=== PATIENT | female | born 1970 | race Caucasian/White ===

== ENCOUNTER 2017-07-27 18:37 | Emergency (ER) | payer OTHER ==
[~2017-07-27] VITALS: Ht 170.2 cm; Wt 90.9 kg
[2017-07-27] MEDS ORDERED: ALPR0.255 PO (18:44)
[2017-07-27] MEDS ORDERED: SODIUM CHLORIDE 0.9% 1,000 ML IV ONE (19:15)
[2017-07-27] MEDS ORDERED: ONDANSETRON HCL 4 MG/2 ML VIAL IVP ONE ×2 (19:15→22:15)
[2017-07-27 19:24] LABS: ADD UA MICROSCOPIC YES; APPEARANCE,URINE CLEAR (CLEAR); GLUCOSE, URINE (UA) NEGATIVE (NEGATIVE); KETONES,URINE >=80 mg/dL (NEGATIVE); LEUKOCYTE ESTERASE ,URINE NEGATIVE (NEGATIVE); OCCULT BLOOD,URINE TRACE (NEGATIVE); PROTEIN,URINE NEGATIVE (NEGATIVE)
[2017-07-27 19:31] LABS: SQUAMOUS EPITHELIAL CELL,UR Moderate /LPF (None Seen)
[2017-07-27 19:33] LABS: WBC,URINE 0-2 /HPF (0-5)
[2017-07-27 19:39] LABS: BASOPHILS # (AUTO) 0.02 K/uL (0.00-0.20); BASOPHILS % (AUTO) 0.3 % (0.0-2.0); EOSINOPHILS # (AUTO) 0.06 K/uL (0.00-0.70); EOSINOPHILS % (AUTO) 1.02 % (1.0-6.0); HEMATOCRIT 39.3 % (36-46); HEMOGLOBIN 13.3 g/dL (12.0-16.0); LYMPHOCYTES # (AUTO) 1.5 K/uL (1.0-4.8); LYMPHOCYTES % (AUTO) 25.1 % (22.0-44.0); MEAN CORPUSCULAR HEMOGLOBIN 29.2 pg (26.0-34.0); MEAN CORPUSCULAR HGB CONC 33.8 G/dL (31.0-37.0); MEAN CORPUSCULAR VOLUME 86 fL (80-100); MONOCYTES # (AUTO) 0.5 K/uL (0.1-1.0); MONOCYTES % (AUTO) 8.3 % (2.0-9.0); NEUTROPHILS % (AUTO) 65.3 % (40.0-70.0); PLATELET COUNT (AUTO) 263 K/uL (150-450); RED BLOOD CELL COUNT(AUTO) 4.56 MIL/uL (4.00-5.20); RED CELL DISTRIBUTION WIDTH 12.6 % (11.5-14.5); WHITE BLOOD COUNT (AUTO) 6.1 K/uL (4.5-11.0)
[2017-07-27 19:48] LABS: ANION GAP 7 mmol/L (8-16); CALCIUM, TOTAL 8.8 mg/dL (8.8-10.5); CARBON DIOXIDE 29 mmol/L (22-29); CHLORIDE 104 mmol/L (98-107); CREATININE 0.81 mg/dL (0.60-1.30); GLOMERULAR FILTR. RATE CALC > 60 mL/min (>60); POTASSIUM 4.1 mmol/L (3.5-5.1); SODIUM SERUM 140 mmol/L (136-145); UREA NITROGEN, BLOOD 9 mg/dL (7-18)
[2017-07-27 19:53] LABS: ALANINE AMINOTRANSFERASE 26 U/L (12-78); ALBUMIN 3.7 g/dL (3.4-5.0); ASPARTATE AMINOTRANSFERASE 22 U/L (15-37); BILIRUBIN,TOTAL 0.3 mg/dL (0.1-1.0)
[2017-07-27 21:32] LABS: THYROID STIMULATING HORMONE 2.64 uIU/mL (0.36-3.74)
[2017-07-27 22:38] VITALS: BP 133/77
== END 2017-07-27 22:39 | disposition home or self-care (01) ==
LOC: EMS 18:38
DX: R11.2 Nausea with vomiting, unspecified (principal); F17.210 Nicotine dependence, cigarettes, uncomplicated; R51 Headache; R52 Pain, unspecified
CPT/HCPCS: 36415; 80053; 81001; 83690; 84443; 84703; 85025; 93005; 96361; 96374; 96376; 99285; J2405; J7030

== ENCOUNTER 2019-01-09 22:27 | Emergency (ER) | payer OTHER ==
[~2019-01-09] VITALS: Ht 170.2 cm; Wt 69.8 kg
[~2019-01-09 22:27] MED LIST: ALPR0.255 PO
[2019-01-09] MEDS ORDERED: MORPHINE SULFATE 4 MG/ML SYRINGE IVP ONE (23:00)
[2019-01-09] MEDS ORDERED: SODIUM CHLORIDE 0.9% 100 ML ONE (23:19)
[2019-01-09] MEDS ORDERED: IOVERSOL 320 MG/ML 100 ML VIAL ONE (23:19)
[2019-01-09 23:45] LABS: BASOPHILS % (AUTO) 0.5 % (0.0-2.0); EOSINOPHILS % (AUTO) 1.8 % (1.0-6.0); HEMATOCRIT 32.3 % (36-46); HEMOGLOBIN 10.7 g/dL (12.0-16.0); LYMPHOCYTES # (AUTO) 1.4 K/uL (1.0-4.8); LYMPHOCYTES % (AUTO) 20.5 % (22.0-44.0); MEAN CORPUSCULAR HGB CONC 33.1 G/dL (31.0-37.0); MEAN CORPUSCULAR VOLUME 82 fL (80-100); MONOCYTES # (AUTO) 0.8 K/uL (0.1-1.0); MONOCYTES % (AUTO) 11.7 % (2.0-9.0); NEUTROPHILS # (AUTO) 4.3 K/uL (1.8-7.7); NEUTROPHILS % (AUTO) 65.5 % (40.0-70.0); PLATELET COUNT (AUTO) 453 K/uL (150-450); RED BLOOD CELL COUNT(AUTO) 3.96 MIL/uL (4.00-5.20); RED CELL DISTRIBUTION WIDTH 14.2 % (11.5-14.5)
[2019-01-10 00:16] LABS: ANION GAP 10 mmol/L (8-16); CALCIUM, TOTAL 9.5 mg/dL (8.8-10.5); CARBON DIOXIDE 29 mmol/L (22-29); CHLORIDE 102 mmol/L (98-107); CREATININE 0.76 mg/dL (0.60-1.30); GLOMERULAR FILTR. RATE CALC > 60 mL/min (>60); GLUCOSE,RANDOM 93 mg/dL (70-110); POTASSIUM 4.3 mmol/L (3.5-5.1); SODIUM SERUM 141 mmol/L (136-145); UREA NITROGEN, BLOOD 11 mg/dL (7-18)
[2019-01-10 00:27] LABS: ALANINE AMINOTRANSFERASE 36 U/L (12-78); ALBUMIN 2.9 g/dL (3.4-5.0); ALKALINE PHOSPHATASE 145 U/L (46-116); ASPARTATE AMINOTRANSFERASE 28 U/L (15-37); BILIRUBIN,TOTAL 0.2 mg/dL (0.1-1.0); HCG,QUANTITATIVE < 1 mIU/mL (0-6); TOTAL PROTEIN, SERUM 7.4 g/dL (6.4-8.2)
[2019-01-10 02:11] VITALS: BP 148/90
== END 2019-01-10 02:47 | disposition home or self-care (01) ==
LOC: EMS 22:28
DX: M25.512 Pain in left shoulder (principal); D64.9 Anemia, unspecified; F41.9 Anxiety disorder, unspecified; F32.9 Major depressive disorder, single episode, unspecified; F17.210 Nicotine dependence, cigarettes, uncomplicated
CPT/HCPCS: 36415; 71260; 80053; 84484; 84702; 85025; 96374; 99284; J2270; J7050; Q9967

== ENCOUNTER 2019-02-26 21:18 | Inpatient (IN) | payer OTHER ==
[~2019-02-26] VITALS: Ht 170.2 cm; Wt 74.0 kg
[2019-02-26] MEDS ORDERED: LORA1TAB3 PO (21:30)
[2019-02-26] MEDS ORDERED: LORazepam 2 MG/ML VIAL IVP ONE (22:00)
[2019-02-26 22:30] LABS: BASOPHILS % (AUTO) 0.5 % (0.0-2.0); EOSINOPHILS % (AUTO) 1.5 % (1.0-6.0); HEMATOCRIT 35.6 % (36-46); HEMOGLOBIN 11.4 g/dL (12.0-16.0); LYMPHOCYTES # (AUTO) 3.4 K/uL (1.0-4.8); LYMPHOCYTES % (AUTO) 28.6 % (22.0-44.0); MEAN CORPUSCULAR HEMOGLOBIN 25.7 pg (26.0-34.0); MEAN CORPUSCULAR VOLUME 81 fL (80-100); MONOCYTES # (AUTO) 0.7 K/uL (0.1-1.0); MONOCYTES % (AUTO) 6.3 % (2.0-9.0); NEUTROPHILS # (AUTO) 7.4 K/uL (1.8-7.7); NEUTROPHILS % (AUTO) 63.1 % (40.0-70.0); PLATELET COUNT (AUTO) 635 K/uL (150-450); RED BLOOD CELL COUNT(AUTO) 4.42 MIL/uL (4.00-5.20); RED CELL DISTRIBUTION WIDTH 14.8 % (11.5-14.5)
[2019-02-26] MEDS ORDERED: SODIUM CHLORIDE 0.9% 0 ML ONE (22:30)
[2019-02-26] MEDS ORDERED: IOVERSOL 350 MG/ML 100 ML VIAL ONE (22:30)
[2019-02-26 22:41] LABS: INR 0.9 (0.9-1.1); PROTHROMBIN TIME 9.2 SEC (9.4-11.6)
[2019-02-26 22:43] LABS: ANION GAP 6 mmol/L (8-16); CALCIUM, TOTAL 9.8 mg/dL (8.8-10.5); CARBON DIOXIDE 31 mmol/L (22-29); CHLORIDE 103 mmol/L (98-107); CREATININE 0.76 mg/dL (0.60-1.30); GLOMERULAR FILTR. RATE CALC > 60 mL/min (>60); GLUCOSE,RANDOM 104 mg/dL (70-110); POTASSIUM 4.2 mmol/L (3.5-5.1); SODIUM SERUM 140 mmol/L (136-145); UREA NITROGEN, BLOOD 20 mg/dL (7-18)
[2019-02-26 22:49] LABS: LACTIC ACID 1.1 mmol/L (0.4-2.0)
[2019-02-26 22:58] LABS: ALANINE AMINOTRANSFERASE 16 U/L (12-78); ALBUMIN 3.1 g/dL (3.4-5.0); ALKALINE PHOSPHATASE 126 U/L (46-116); ASPARTATE AMINOTRANSFERASE 11 U/L (15-37); BILIRUBIN,TOTAL 0.2 mg/dL (0.1-1.0); FREE T4 (FREE THYROXINE) 1.27 ng/dL (0.76-1.46); LIPASE 119 U/L (73-393); THYROID STIMULATING HORMONE 3.18 uIU/mL (0.36-3.74); TOTAL PROTEIN, SERUM 7.5 g/dL (6.4-8.2)
[2019-02-27] MEDS ORDERED: CefTRIAXone 1 GM/DEXTROSE 50 ML IV ONE (01:15)
[2019-02-27] MEDS ORDERED: VANCOMYCIN HCL 1 GM/D5% WATER 200 ML IV ONE (01:15)
[2019-02-27] MEDS ORDERED: 0.9% SODIUM CHLORIDE 10 ML SYRINGE IVP PRN ×3 (01:45→06:15)
[2019-02-27] MEDS ORDERED: ACETAMINOPHEN 325 MG TABLET PO PRN ×2 (01:45→06:15)
[2019-02-27] MEDS ORDERED: ONDANSETRON HCL 4 MG/2 ML VIAL IVP PRN ×2 (01:45→06:15)
[2019-02-27] MEDS ORDERED: VANCOMYCIN HCL 500 MG in DEXTROSE 5%-WATER 100 ML IV ONE (08:00)
[2019-02-27] MEDS: DOCUSATE SODIUM 100 MG CAPSULE PO SCH ×2 (09:00→21:01)
[2019-02-27 09:04] VITALS: BP 112/60
[2019-02-27] MEDS ORDERED: SODIUM CHLORIDE 0.9% 500 ML IV ONE (10:52)
[2019-02-27] MEDS: HEPARIN SODIUM,PORCINE 5,000 UNITS/ML VIAL SQ SCH ×2 (10:55→16:00)
[2019-02-27] MEDS: PANTOPRAZOLE SODIUM 40 MG/VIAL IVP SCH (10:55)
[2019-02-27 12:00] VITALS: BP 108/68
[2019-02-27] MEDS ORDERED: KETOROLAC TROMETHAMINE 30 MG/ML VIAL IVP ONE (12:00)
[2019-02-27] MEDS: MORPHINE SULFATE 4 MG/ML SYRINGE IVP PRN ×2 (14:46→21:01)
[2019-02-27] MEDS: KETOROLAC TROMETHAMINE 10 MG TABLET PO PRN (16:34)
[2019-02-27] MEDS: LORazepam 1 MG TABLET PO PRN (16:35)
[2019-02-27] MEDS: VANCOMYCIN HCL 1 GM/D5% WATER 200 ML IV SCH (16:37)
[2019-02-27 16:53] VITALS: BP 112/62
[2019-02-27 20:05] VITALS: BP 111/61
[2019-02-27] MEDS: ONDANSETRON HCL 4 MG/2 ML VIAL IVP PRN (23:06)
[2019-02-28 00:29] VITALS: BP 120/76
[2019-02-28] MEDS: VANCOMYCIN HCL 1 GM/D5% WATER 200 ML IV SCH (00:32)
[2019-02-28] MEDS: LORazepam 1 MG TABLET PO PRN ×3 (00:45→23:58)
[2019-02-28 04:13] VITALS: BP 118/56
[2019-02-28] MEDS: CefTRIAXone 1 GM/DEXTROSE 50 ML IV SCH (06:10)
[2019-02-28] MEDS: MORPHINE SULFATE 4 MG/ML SYRINGE IVP PRN ×2 (06:19→12:13)
[2019-02-28] MEDS: ONDANSETRON HCL 4 MG/2 ML VIAL IVP PRN ×2 (06:33→20:33)
[2019-02-28 06:41] LABS: BASOPHILS % (AUTO) 0.2 % (0.0-2.0); EOSINOPHILS % (AUTO) 1.3 % (1.0-6.0); HEMATOCRIT 33.8 % (36-46); HEMOGLOBIN 11.1 g/dL (12.0-16.0); LYMPHOCYTES # (AUTO) 2.5 K/uL (1.0-4.8); LYMPHOCYTES % (AUTO) 31.4 % (22.0-44.0); MEAN CORPUSCULAR HEMOGLOBIN 26.4 pg (26.0-34.0); MEAN CORPUSCULAR HGB CONC 32.7 G/dL (31.0-37.0); MEAN CORPUSCULAR VOLUME 81 fL (80-100); MONOCYTES # (AUTO) 0.6 K/uL (0.1-1.0); MONOCYTES % (AUTO) 6.8 % (2.0-9.0); NEUTROPHILS # (AUTO) 4.9 K/uL (1.8-7.7); NEUTROPHILS % (AUTO) 60.3 % (40.0-70.0); PLATELET COUNT (AUTO) 617 K/uL (150-450)
[2019-02-28 07:30] VITALS: BP 122/68
[2019-02-28 07:51] LABS: ALANINE AMINOTRANSFERASE 13 U/L (12-78); ALBUMIN 2.6 g/dL (3.4-5.0); ALKALINE PHOSPHATASE 110 U/L (46-116); ANION GAP 3 mmol/L (8-16); ASPARTATE AMINOTRANSFERASE 10 U/L (15-37); BILIRUBIN,TOTAL 0.2 mg/dL (0.1-1.0); CALCIUM, TOTAL 8.8 mg/dL (8.8-10.5); CARBON DIOXIDE 32 mmol/L (22-29); CHLORIDE 101 mmol/L (98-107); CREATININE 0.89 mg/dL (0.60-1.30); GLOMERULAR FILTR. RATE CALC > 60 mL/min (>60); GLUCOSE,RANDOM 106 mg/dL (70-110); POTASSIUM 4.3 mmol/L (3.5-5.1); SODIUM SERUM 136 mmol/L (136-145); TOTAL PROTEIN, SERUM 6.5 g/dL (6.4-8.2); UREA NITROGEN, BLOOD 19 mg/dL (7-18); VANCOMYCIN,RANDOM 24.1 mcg/mL (25.0-50.0)
[2019-02-28] MEDS: HEPARIN SODIUM,PORCINE 5,000 UNITS/ML VIAL SQ SCH ×3 (08:00→15:22)
[2019-02-28] MEDS: PANTOPRAZOLE SODIUM 40 MG/VIAL IVP SCH (08:52)
[2019-02-28] MEDS: DOCUSATE SODIUM 100 MG CAPSULE PO SCH ×2 (08:52→20:32)
[2019-02-28] MEDS: KETOROLAC TROMETHAMINE 10 MG TABLET PO PRN ×2 (09:03→23:59)
[2019-02-28] MEDS ORDERED: KETAMINE HCL 50 MG/ML 10 ML VIAL IVP ONE (12:00)
[2019-02-28] MEDS ORDERED: MIDAZOLAM HCL 2 MG/2 ML VIAL IVP ONE (12:00)
[2019-02-28 15:27] VITALS: BP 114/71
[2019-02-28] MEDS: VANCOMYCIN HCL 750 MG in DEXTROSE 5%-WATER 250 ML IV SCH ×2 (16:04→19:35)
[2019-02-28] MEDS: HYDROmorphone 2 MG/ML SYRINGE IVP PRN ×2 (16:05→20:33)
[2019-02-28] MEDS ORDERED: LORazepam 2 MG/ML VIAL IVP ONE (16:15)
[2019-02-28] MEDS ORDERED: GADOBUTROL 1 MMOL/ML 10 ML VIAL IVP ONE (18:23)
[2019-02-28 19:45] VITALS: BP 97/64
[2019-02-28 23:55] VITALS: BP 127/71
[2019-03-01] MEDS: HYDROmorphone 2 MG/ML SYRINGE IVP PRN ×4 (00:48→19:43)
[2019-03-01] MEDS: VANCOMYCIN HCL 750 MG in DEXTROSE 5%-WATER 250 ML IV SCH ×3 (03:26→19:33)
[2019-03-01 04:15] VITALS: BP 114/66
[2019-03-01] MEDS: CefTRIAXone 1 GM/DEXTROSE 50 ML IV SCH (06:08)
[2019-03-01] MEDS ORDERED: LIDOCAINE/PF 2% 5 ML VIAL ONE (06:44)
[2019-03-01] MEDS ORDERED: DEXAMETHASONE SOD PHOS 4 MG/ML VIAL ONE (06:44)
[2019-03-01] MEDS ORDERED: ACETAMINOPHEN 1000 MG/ISO-OSM 100 ML IV ONE (06:45)
[2019-03-01] MEDS ORDERED: BUPIVACAINE HCL/PF 0.5% 30 ML VIAL ONE (06:45)
[2019-03-01] MEDS ORDERED: SODIUM CL IRRIG SOLN BAG 3,000 ML IRRIG ONE (06:47)
[2019-03-01 06:57] LABS: BASOPHILS % (AUTO) 0.3 % (0.0-2.0); EOSINOPHILS % (AUTO) 1.9 % (1.0-6.0); HEMATOCRIT 34.3 % (36-46); HEMOGLOBIN 11.1 g/dL (12.0-16.0); LYMPHOCYTES # (AUTO) 2.2 K/uL (1.0-4.8); LYMPHOCYTES % (AUTO) 30.4 % (22.0-44.0); MEAN CORPUSCULAR HEMOGLOBIN 26.2 pg (26.0-34.0); MEAN CORPUSCULAR HGB CONC 32.3 G/dL (31.0-37.0); MEAN CORPUSCULAR VOLUME 81 fL (80-100); MONOCYTES # (AUTO) 0.5 K/uL (0.1-1.0); MONOCYTES % (AUTO) 7.4 % (2.0-9.0); NEUTROPHILS # (AUTO) 4.4 K/uL (1.8-7.7); PLATELET COUNT (AUTO) 619 K/uL (150-450); RED BLOOD CELL COUNT(AUTO) 4.24 MIL/uL (4.00-5.20); RED CELL DISTRIBUTION WIDTH 14.8 % (11.5-14.5)
[2019-03-01] MEDS ORDERED: RINGERS SOLUTION,LACTATED 1,000 ML IV ONE (07:10)
[2019-03-01] MEDS ORDERED: VANCOMYCIN HCL 1 GM/VIAL ONE (07:25)
[2019-03-01 07:43] LABS: ANION GAP 8 mmol/L (8-16); CALCIUM, TOTAL 9.4 mg/dL (8.8-10.5); CARBON DIOXIDE 30 mmol/L (22-29); CHLORIDE 101 mmol/L (98-107); CREATININE 0.89 mg/dL (0.60-1.30); GLOMERULAR FILTR. RATE CALC > 60 mL/min (>60); GLUCOSE,RANDOM 107 mg/dL (70-110); POTASSIUM 4.6 mmol/L (3.5-5.1); SODIUM SERUM 139 mmol/L (136-145); UREA NITROGEN, BLOOD 23 mg/dL (7-18)
[2019-03-01] MEDS: HEPARIN SODIUM,PORCINE 5,000 UNITS/ML VIAL SQ SCH ×5 (08:00→23:04)
[2019-03-01] MEDS ORDERED: MIDAZOLAM HCL 2 MG/2 ML VIAL ONE (08:08)
[2019-03-01] MEDS ORDERED: MIDAZOLAM HCL 2 MG/2 ML VIAL IVP ONE (08:15)
[2019-03-01] MEDS ORDERED: HYDROmorphone 2 MG/ML SYRINGE IVP PRN ×3 (08:15)
[2019-03-01] MEDS: ACETAMINOPHEN 500 MG TABLET PO SCH ×3 (08:15→19:33)
[2019-03-01] MEDS ORDERED: MEPERIDINE-PF 25 MG/ML VIAL IVP PRN ×2 (08:15)
[2019-03-01] MEDS ORDERED: FentaNYL CITRATE-PF 100 MCG/2 ML VIAL IVP PRN ×2 (08:15)
[2019-03-01] MEDS ORDERED: MEPERIDINE-PF 25 MG/ML VIAL ONE (08:30)
[2019-03-01 08:39] VITALS: BP 123/70
[2019-03-01] MEDS: PANTOPRAZOLE SODIUM 40 MG/VIAL IVP SCH (09:17)
[2019-03-01] MEDS: DOCUSATE SODIUM 100 MG CAPSULE PO SCH ×2 (09:17→19:33)
[2019-03-01 09:23] VITALS: BP 131/90
[2019-03-01] MEDS ORDERED: ONDANSETRON HCL 4 MG/2 ML VIAL IVP ONE (12:00)
[2019-03-01] MEDS ORDERED: KETOROLAC TROMETHAMINE 60 MG/2 ML VIAL IM ONE (12:00)
[2019-03-01] MEDS ORDERED: LIDOCAINE/PF 2% 5 ML VIAL INJ ONE (12:00)
[2019-03-01] MEDS ORDERED: EPHEDrine SULFATE 50 MG/ML VIAL IM ONE (12:00)
[2019-03-01] MEDS ORDERED: DEXAMETHASONE SOD PHOS 4 MG/ML VIAL IVP ONE (12:00)
[2019-03-01] MEDS ORDERED: PROPOFOL 1% 20 ML VIAL IVP ONE (12:00)
[2019-03-01] MEDS: LORazepam 1 MG TABLET PO PRN (12:22)
[2019-03-01 16:30] VITALS: BP 116/69
[2019-03-01] MEDS: KETOROLAC TROMETHAMINE 15 MG/ML VIAL IVP SCH (16:54)
[2019-03-01 19:47] VITALS: BP 113/84
[2019-03-02] VITALS (7 sets, daily range): BP systolic 93–122; BP diastolic 54–78
[2019-03-02] MEDS: HYDROmorphone 2 MG/ML SYRINGE IVP PRN ×5 (00:18→20:20)
[2019-03-02] MEDS: ACETAMINOPHEN 500 MG TABLET PO SCH ×4 (01:14→20:18)
[2019-03-02] MEDS: LORazepam 1 MG TABLET PO PRN ×3 (01:14→18:25)
[2019-03-02] MEDS: VANCOMYCIN HCL 750 MG in DEXTROSE 5%-WATER 250 ML IV SCH ×3 (03:15→16:26)
[2019-03-02] MEDS: KETOROLAC TROMETHAMINE 15 MG/ML VIAL IVP SCH ×4 (05:09→18:25)
[2019-03-02] MEDS: CefTRIAXone 1 GM/DEXTROSE 50 ML IV SCH (05:09)
[2019-03-02 06:15] LABS: BASOPHILS % (AUTO) 0.2 % (0.0-2.0); EOSINOPHILS % (AUTO) 0.1 % (1.0-6.0); HEMATOCRIT 33.5 % (36-46); HEMOGLOBIN 11.1 g/dL (12.0-16.0); LYMPHOCYTES # (AUTO) 1.8 K/uL (1.0-4.8); LYMPHOCYTES % (AUTO) 14.7 % (22.0-44.0); MEAN CORPUSCULAR HEMOGLOBIN 26.5 pg (26.0-34.0); MEAN CORPUSCULAR HGB CONC 33.1 G/dL (31.0-37.0); MEAN CORPUSCULAR VOLUME 80 fL (80-100); MONOCYTES # (AUTO) 0.6 K/uL (0.1-1.0); MONOCYTES % (AUTO) 5.1 % (2.0-9.0); NEUTROPHILS # (AUTO) 9.6 K/uL (1.8-7.7); NEUTROPHILS % (AUTO) 79.9 % (40.0-70.0); PLATELET COUNT (AUTO) 684 K/uL (150-450); RED BLOOD CELL COUNT(AUTO) 4.19 MIL/uL (4.00-5.20); RED CELL DISTRIBUTION WIDTH 14.9 % (11.5-14.5)
[2019-03-02 06:39] LABS: ANION GAP 9 mmol/L (8-16); CARBON DIOXIDE 27 mmol/L (22-29); CHLORIDE 103 mmol/L (98-107); CREATININE 0.82 mg/dL (0.60-1.30); GLOMERULAR FILTR. RATE CALC > 60 mL/min (>60); GLUCOSE,RANDOM 140 mg/dL (70-110); POTASSIUM 4.2 mmol/L (3.5-5.1); SODIUM SERUM 139 mmol/L (136-145); UREA NITROGEN, BLOOD 17 mg/dL (7-18); VANCOMYCIN,RANDOM 14.6 mcg/mL (25.0-50.0)
[2019-03-02] MEDS: HEPARIN SODIUM,PORCINE 5,000 UNITS/ML VIAL SQ SCH ×2 (08:00→15:39)
[2019-03-02] MEDS: DOCUSATE SODIUM 100 MG CAPSULE PO SCH ×2 (09:05→20:20)
[2019-03-02] MEDS: PANTOPRAZOLE SODIUM 40 MG/VIAL IVP SCH (09:05)
[2019-03-02] MEDS: BISACODYL 5 MG EC TABLET PO SCH ×2 (12:40→20:20)
[2019-03-02] MEDS: ZOLPIDEM TARTRATE 5 MG TABLET PO PRN (22:24)
[2019-03-03] MEDS: VANCOMYCIN HCL 750 MG in DEXTROSE 5%-WATER 250 ML IV SCH (00:04)
[2019-03-03 00:18] VITALS: BP 101/65
[2019-03-03] MEDS: LORazepam 1 MG TABLET PO PRN ×3 (00:32→21:03)
[2019-03-03] MEDS: ACETAMINOPHEN 500 MG TABLET PO SCH ×4 (02:15→21:03)
[2019-03-03 05:31] LABS: BASOPHILS % (AUTO) 0.7 % (0.0-2.0); EOSINOPHILS % (AUTO) 1.5 % (1.0-6.0); HEMOGLOBIN 10.1 g/dL (12.0-16.0); LYMPHOCYTES % (AUTO) 45.8 % (22.0-44.0); MEAN CORPUSCULAR HEMOGLOBIN 26.3 pg (26.0-34.0); MEAN CORPUSCULAR HGB CONC 32.6 G/dL (31.0-37.0); MEAN CORPUSCULAR VOLUME 81 fL (80-100); MONOCYTES # (AUTO) 0.6 K/uL (0.1-1.0); MONOCYTES % (AUTO) 8.9 % (2.0-9.0); NEUTROPHILS # (AUTO) 2.9 K/uL (1.8-7.7); NEUTROPHILS % (AUTO) 43.1 % (40.0-70.0); PLATELET COUNT (AUTO) 571 K/uL (150-450); RED BLOOD CELL COUNT(AUTO) 3.83 MIL/uL (4.00-5.20); RED CELL DISTRIBUTION WIDTH 15.1 % (11.5-14.5)
[2019-03-03 05:47] LABS: ANION GAP 7 mmol/L (8-16); CALCIUM, TOTAL 8.7 mg/dL (8.8-10.5); CARBON DIOXIDE 31 mmol/L (22-29); CHLORIDE 105 mmol/L (98-107); CREATININE 0.82 mg/dL (0.60-1.30); GLOMERULAR FILTR. RATE CALC > 60 mL/min (>60); GLUCOSE,RANDOM 101 mg/dL (70-110); POTASSIUM 4.1 mmol/L (3.5-5.1); SODIUM SERUM 143 mmol/L (136-145); UREA NITROGEN, BLOOD 17 mg/dL (7-18); VANCOMYCIN,RANDOM 21.4 mcg/mL (25.0-50.0)
[2019-03-03 05:48] VITALS: BP 100/62
[2019-03-03] MEDS: KETOROLAC TROMETHAMINE 15 MG/ML VIAL IVP SCH ×4 (05:56→18:21)
[2019-03-03] MEDS: HYDROmorphone 2 MG/ML SYRINGE IVP PRN ×4 (05:57→22:33)
[2019-03-03 07:40] VITALS: BP 103/74
[2019-03-03] MEDS: HEPARIN SODIUM,PORCINE 5,000 UNITS/ML VIAL SQ SCH ×3 (08:00→15:54)
[2019-03-03] MEDS ORDERED: VANCOMYCIN HCL 1 GM/D5% WATER 200 ML IV ONE (08:00)
[2019-03-03] MEDS: DOCUSATE SODIUM 100 MG CAPSULE PO SCH ×2 (08:04→21:02)
[2019-03-03] MEDS: BISACODYL 5 MG EC TABLET PO SCH ×2 (08:05→21:02)
[2019-03-03] MEDS: PANTOPRAZOLE SODIUM 40 MG/VIAL IVP SCH (08:05)
[2019-03-03] MEDS: OxyCODONE HCL/ACETAMINOPHEN 10-325 MG TABLET PO PRN ×2 (08:07→18:20)
[2019-03-03] MEDS: ONDANSETRON HCL 4 MG/2 ML VIAL IVP PRN (09:17)
[2019-03-03 11:16] VITALS: BP 106/61
[2019-03-03] MEDS: VANCOMYCIN HCL 1 GM/D5% WATER 200 ML IV SCH ×2 (15:54→23:10)
[2019-03-03 16:11] VITALS: BP 112/63
[2019-03-03 20:32] VITALS: BP 106/61
[2019-03-04 00:05] VITALS: BP 115/68
[2019-03-04] MEDS: ZOLPIDEM TARTRATE 5 MG TABLET PO PRN (00:20)
[2019-03-04] MEDS: KETOROLAC TROMETHAMINE 15 MG/ML VIAL IVP SCH ×3 (00:23→12:44)
[2019-03-04] MEDS: ACETAMINOPHEN 500 MG TABLET PO SCH ×3 (02:15→14:15)
[2019-03-04 04:08] VITALS: BP 124/60
[2019-03-04] MEDS: HYDROmorphone 2 MG/ML SYRINGE IVP PRN ×2 (05:37→16:09)
[2019-03-04 06:22] LABS: ANION GAP 7 mmol/L (8-16); CALCIUM, TOTAL 9.5 mg/dL (8.8-10.5); CARBON DIOXIDE 30 mmol/L (22-29); CHLORIDE 104 mmol/L (98-107); CREATININE 0.94 mg/dL (0.60-1.30); GLOMERULAR FILTR. RATE CALC > 60 mL/min (>60); GLUCOSE,RANDOM 101 mg/dL (70-110); POTASSIUM 4.3 mmol/L (3.5-5.1); SODIUM SERUM 141 mmol/L (136-145); UREA NITROGEN, BLOOD 19 mg/dL (7-18)
[2019-03-04] MEDS: VANCOMYCIN HCL 1 GM/D5% WATER 200 ML IV SCH ×2 (06:38→14:24)
[2019-03-04 07:18] VITALS: BP 105/57
[2019-03-04] MEDS: HEPARIN SODIUM,PORCINE 5,000 UNITS/ML VIAL SQ SCH ×3 (08:00→16:00)
[2019-03-04] MEDS: DOCUSATE SODIUM 100 MG CAPSULE PO SCH (08:30)
[2019-03-04] MEDS: BISACODYL 5 MG EC TABLET PO SCH (08:30)
[2019-03-04] MEDS: LORazepam 1 MG TABLET PO PRN (09:01)
[2019-03-04] MEDS: OxyCODONE HCL/ACETAMINOPHEN 10-325 MG TABLET PO PRN ×2 (09:03→14:24)
[2019-03-04] MEDS: PANTOPRAZOLE SODIUM 40 MG/VIAL IVP SCH (09:04)
[2019-03-04 11:42] VITALS: BP 111/70
[2019-03-04] MEDS ORDERED: VANC1FRO IVPB (13:59)
[2019-03-04 16:05] VITALS: BP 102/68
== END 2019-03-04 16:40 | disposition home or self-care (01) | DRG 315 ==
LOC: EMS 21:20 → 5N 02-27 01:41
PROVIDERS: ADMIT Internal Medicine; ATTEND Internal Medicine
PROC: 0XB30ZZ Excision of Left Shoulder Region, Open Approach (ICD-10-PCS; 2019-03-01)
PROC: 0RBF0ZZ Excision of Left Sternoclavicular Joint, Open Approach (ICD-10-PCS; 2019-03-01)
PROC: 0J9F0ZZ Drainage of Left Upper Arm Subcutaneous Tissue and Fascia, Open Approach (ICD-10-PCS; 2019-03-01)
PROC: 0PBB0ZZ Excision of Left Clavicle, Open Approach (ICD-10-PCS; principal; 2019-03-01 07:30)
PROC: B548ZZA Ultrasonography of Superior Vena Cava, Guidance (ICD-10-PCS; 2019-03-03)
PROC: 02HV33Z Insertion of Infusion Device into Superior Vena Cava, Percutaneous Approach (ICD-10-PCS; 2019-03-03)
DX: M00.9 Pyogenic arthritis, unspecified (principal); L02.213 Cutaneous abscess of chest wall; M86.8X1 Other osteomyelitis, shoulder; K59.00 Constipation, unspecified; F41.9 Anxiety disorder, unspecified; F32.9 Major depressive disorder, single episode, unspecified; F17.210 Nicotine dependence, cigarettes, uncomplicated; Z88.1 Allergy status to other antibiotic agents
CPT/HCPCS: 36569; 71250; 71552; 76937; 83605; 83735; 84439; 84443; 85651; 86140; 87040; 87070; 87205; 88304; 88311; 93306; 96365; 96375; A9585; C9113; G0378; J0131; J0696; J1100; J1170; J1644; J1885; J2060; J2175; J2250; J2270; J2405; J2704; J3370; J3490; J7040; J7050; J7060; J7120

== ENCOUNTER 2019-05-11 12:04 | Inpatient (IN) | payer OTHER ==
[~2019-05-11] VITALS: Ht 170.2 cm; Wt 61.0 kg
[~2019-05-11 12:04] MED LIST changes: -ALPR0.255 PO; +VANC1FRO IVPB
[2019-05-11] MEDS ORDERED: CEFA1IV IV (12:19)
[2019-05-11] MEDS ORDERED: IBUP-2070 PO (12:19)
[2019-05-11] MEDS ORDERED: ACET-2247 PO (12:19)
[2019-05-11] MEDS ORDERED: SODIUM CHLORIDE 0.9% 1,000 ML IV ONE ×2 (12:45→15:15)
[2019-05-11] MEDS ORDERED: HYDROmorphone 2 MG/ML SYRINGE IVP ONE (12:45)
[2019-05-11] MEDS ORDERED: ONDANSETRON HCL 4 MG/2 ML VIAL IVP ONE (12:45)
[2019-05-11 13:01] LABS: BASOPHILS % (AUTO) 0.6 % (0.0-2.0); EOSINOPHILS % (AUTO) 0.7 % (1.0-6.0); HEMATOCRIT 26.9 % (36-46); HEMOGLOBIN 8.4 g/dL (12.0-16.0); LYMPHOCYTES # (AUTO) 0.5 K/uL (1.0-4.8); MEAN CORPUSCULAR HEMOGLOBIN 22.7 pg (26.0-34.0); MEAN CORPUSCULAR HGB CONC 31.1 G/dL (31.0-37.0); MEAN CORPUSCULAR VOLUME 73 fL (80-100); MONOCYTES # (AUTO) 0.4 K/uL (0.1-1.0); MONOCYTES % (AUTO) 4.6 % (2.0-9.0); NEUTROPHILS % (AUTO) 89.1 % (40.0-70.0); PLATELET COUNT (AUTO) 316 K/uL (150-450); RED BLOOD CELL COUNT(AUTO) 3.69 MIL/uL (4.00-5.20); RED CELL DISTRIBUTION WIDTH 18.3 % (11.5-14.5)
[2019-05-11 13:09] LABS: CALCIUM, TOTAL 9.1 mg/dL (8.8-10.5); CREATININE 1.15 mg/dL (0.60-1.30); POTASSIUM 3.5 mmol/L (3.5-5.1)
[2019-05-11 13:15] LABS: BILIRUBIN,TOTAL 0.6 mg/dL (0.1-1.0); C-REACTIVE PROTEIN QUANT 30.19 mg/dL (0.00-0.30); TOTAL PROTEIN, SERUM 6.6 g/dL (6.4-8.2)
[2019-05-11 13:18] LABS: LACTIC ACID 1.1 mmol/L (0.4-2.0)
[2019-05-11 13:41] LABS: ERYTHROCYTE SEDIMENTATION RATE 77 MM/HR (0-20)
[2019-05-11] MEDS ORDERED: FUROSEMIDE 40 MG/4 ML VIAL IVP ONE (14:00)
[2019-05-11] MEDS ORDERED: CefTRIAXone 1 GM/DEXTROSE 50 ML IV ONE (14:00)
[2019-05-11] MEDS ORDERED: AZITHROMYCIN 500 MG/NS 250 ML IV ONE (14:00)
[2019-05-11 14:20] LABS: APPEARANCE,URINE CLOUDY (CLEAR); GLUCOSE, URINE (UA) NEGATIVE (NEGATIVE); KETONES,URINE NEGATIVE (NEGATIVE); LEUKOCYTE ESTERASE ,URINE SMALL (NEGATIVE); NITRATE,URINE NEGATIVE (NEGATIVE); OCCULT BLOOD,URINE NEGATIVE (NEGATIVE); PH,URINE 5.5 (5.0-8.0); PROTEIN,URINE SEE CONFIRM (NEGATIVE)
[2019-05-11 14:21] LABS: BILIRUBIN,URINE PRELIM. POSITIVE (NEGATIVE)
[2019-05-11 14:42] LABS: RBC,URINE None Seen /HPF (0-2); SULFOSALICYLIC ACID,URINE 1+ (Negative)
[2019-05-11 14:43] LABS: BACTERIA,URINE None Seen /HPF (None Seen); SQUAMOUS EPITHELIAL CELL,UR Many /LPF (None Seen)
[2019-05-11] MEDS ORDERED: *CLINICAL-CEFEPIME DOSING CLINICAL ONE (14:45)
[2019-05-11] MEDS ORDERED: BISACODYL 10 MG RECTAL RECTAL SUPPOSITORY PR PRN (15:00)
[2019-05-11] MEDS ORDERED: 0.9% SODIUM CHLORIDE 10 ML SYRINGE IVP PRN (15:00)
[2019-05-11] MEDS ORDERED: ONDANSETRON HCL 4 MG/2 ML VIAL IVP PRN (15:00)
[2019-05-11] MEDS ORDERED: MAGNESIUM HYDROXIDE SUSPENSION 30 ML UDCUP PO PRN (15:00)
[2019-05-11] MEDS ORDERED: DOCUSATE SODIUM 100 MG CAPSULE PO PRN (15:00)
[2019-05-11] MEDS ORDERED: ALBUTEROL SULFATE 2.5 MG/0.5 ML NEB SOLUTION NEB PRN (15:00)
[2019-05-11] MEDS ORDERED: IPRATROPIUM BROMIDE 0.5 MG/2.5 ML NEB SOLUTION NEB PRN (15:00)
[2019-05-11] MEDS: MORPHINE SULFATE 2 MG/ML SYRINGE IVP PRN ×2 (15:41→22:52)
[2019-05-11] MEDS: ASPIRIN 81 MG CHEWABLE TABLET PO SCH (15:51)
[2019-05-11] MEDS ORDERED: CEFEPIME HCL 2 GM in DEXTROSE 5%-WATER 50 ML IV ONE (16:00)
[2019-05-11] MEDS ORDERED: SODIUM CHLORIDE IV ONE ×4 (16:00→17:15)
[2019-05-11] MEDS ORDERED: VANCOMYCIN HCL 1.25 GM in DEXTROSE 5%-WATER 250 ML IV ONE (16:00)
[2019-05-11] MEDS ORDERED: CEFEPIME HCL 2 GM in DEXTROSE 5%-WATER 100 ML IV SCH (16:00)
[2019-05-11] MEDS ORDERED: LORazepam 2 MG/ML VIAL ONE (16:43)
[2019-05-11] MEDS ORDERED: LORazepam 2 MG/ML VIAL IVP ONE ×2 (16:45→18:00)
[2019-05-11 17:05] LABS: ABG A-A DIFF O2 72.9 mmHg (10-20.0); ABG BASE EXCESS -2.1 mmol/L (-2.0-3.0); ABG CARBOXYHEMOGLOBIN 0.9 % (0.0-1.5); ABG METHEMOGLOBIN 0.2 % (0.0-1.5); ABG OXYGEN CONTENT 12.8 mL/dL (15.0-23.0); ABG OXYGEN SATURATION 95.8 % (95.0-98.0); ABG OXYHEMOGLOBIN 94.7 % (94.0-100.0); ABG PCO2 36 mmHg (35-45); ABG PH 7.412 (7.35-7.450); ABG TOTAL HEMOGLOBIN 9.5 G/dL (12.0-18.0); SOURCE, BLOOD GAS ARTERIAL; TEMPERATURE, FAHRENHEIT, BG 98.6 FAHREN (96.0-98.6)
[2019-05-11 17:06] LABS: O2 DEVICE,BLOOD GAS CANNULA (ROOM AIR); SITE, BLOOD GAS LFT RADIAL
[2019-05-11] MEDS ORDERED: VANCOMYCIN HCL 500 MG in DEXTROSE 5%-WATER 100 ML IV SCH (18:00)
[2019-05-11] MEDS ORDERED: CASPOFUNGIN ACETATE IV ONE (18:45)
[2019-05-11] MEDS ORDERED: SODIUM CHLORIDE 0.9% IV ONE (18:45)
[2019-05-11] MEDS ORDERED: AZITHROMYCIN 500 MG/NS 250 ML IV SCH (19:00)
[2019-05-11 19:35] LABS: % IRON SATURATION 4.5 % (22-44); PROTHROMBIN TIME 10.9 SEC (9.4-11.6)
[2019-05-11 19:42] LABS: LACTIC ACID 3.2 mmol/L (0.4-2.0)
[2019-05-11] MEDS ORDERED: ACETAMINOPHEN 1000 MG/ISO-OSM 100 ML IV ONE (19:45)
[2019-05-11] MEDS ORDERED: MIDAZOLAM HCL 2 MG/2 ML VIAL IVP ONE ×2 (19:45→22:00)
[2019-05-11] MEDS ORDERED: FLUMAZENIL 0.1 MG/ML 5 ML VIAL IVP ONE (19:56)
[2019-05-11] MEDS: LACTOBACILLUS ACIDOPHILUS/BULGARICUS TABLET PO SCH (21:00)
[2019-05-11] MEDS: GuaiFENesin SR 600 MG ER TABLET PO SCH (21:00)
[2019-05-11] MEDS ORDERED: MIDAZOLAM HCL 2 MG/2 ML VIAL IM ONE (21:15)
[2019-05-11] MEDS: FUROSEMIDE 20 MG/2 ML VIAL IVP SCH (21:40)
[2019-05-11] MEDS: HEPARIN SODIUM,PORCINE 5,000 UNITS/ML VIAL SQ SCH (21:40)
[2019-05-11 22:00] VITALS: BP 151/58
[2019-05-11] MEDS: HALOPERIDOL LACTATE 5 MG/ML VIAL IVP PRN (22:39)
[2019-05-11 22:45] VITALS: BP 128/62
[2019-05-12] VITALS (7 sets, daily range): BP systolic 99–146; BP diastolic 72–90
[2019-05-12] MEDS ORDERED: CEFEPIME HCL 2 GM in DEXTROSE 5%-WATER 50 ML IV ONE (01:00)
[2019-05-12] MEDS ORDERED: CEFEPIME HCL 2 GM in DEXTROSE 5%-WATER 50 ML IV SCH ×2 (01:00→06:00)
[2019-05-12] MEDS: ACETAMINOPHEN 325 MG TABLET PO PRN (02:12)
[2019-05-12] MEDS: POTASSIUM CHL 10 MEQ/WATER 50 ML IV SCH ×4 (02:53→06:21)
[2019-05-12] MEDS ORDERED: SODIUM CHLORIDE 0.9% 500 ML IV ONE (03:35)
[2019-05-12] MEDS: HALOPERIDOL LACTATE 5 MG/ML VIAL IVP PRN (04:06)
[2019-05-12] MEDS: MORPHINE SULFATE 2 MG/ML SYRINGE IVP PRN ×2 (04:16→09:55)
[2019-05-12] MEDS: LORazepam 2 MG/ML VIAL IVP PRN ×4 (06:48→11:37)
[2019-05-12 07:46] LABS: BASOPHILS % (AUTO) 0.4 % (0.0-2.0); EOSINOPHILS % (AUTO) 0.3 % (1.0-6.0); HEMATOCRIT 25.5 % (36-46); LYMPHOCYTES # (AUTO) 0.8 K/uL (1.0-4.8); MEAN CORPUSCULAR HGB CONC 31.4 G/dL (31.0-37.0); MEAN CORPUSCULAR VOLUME 73 fL (80-100); MONOCYTES # (AUTO) 0.7 K/uL (0.1-1.0); MONOCYTES % (AUTO) 7.9 % (2.0-9.0); NEUTROPHILS # (AUTO) 7.8 K/uL (1.8-7.7); NEUTROPHILS % (AUTO) 83.4 % (40.0-70.0); PLATELET COUNT (AUTO) 259 K/uL (150-450); RED BLOOD CELL COUNT(AUTO) 3.48 MIL/uL (4.00-5.20); RED CELL DISTRIBUTION WIDTH 18.1 % (11.5-14.5)
[2019-05-12 08:11] LABS: ALBUMIN 1.9 g/dL (3.4-5.0); BILIRUBIN,TOTAL 0.5 mg/dL (0.1-1.0); CALCIUM, TOTAL 8.7 mg/dL (8.8-10.5); CREATININE 1.07 mg/dL (0.60-1.30); MAGNESIUM 1.8 mg/dL (1.80-2.40); POTASSIUM 3.6 mmol/L (3.5-5.1); TOTAL PROTEIN, SERUM 6.3 g/dL (6.4-8.2)
[2019-05-12] MEDS: FUROSEMIDE 20 MG/2 ML VIAL IVP SCH ×2 (08:45→20:37)
[2019-05-12] MEDS: HEPARIN SODIUM,PORCINE 5,000 UNITS/ML VIAL SQ SCH ×2 (08:45→20:37)
[2019-05-12] MEDS: ASPIRIN 81 MG CHEWABLE TABLET PO SCH (09:00)
[2019-05-12] MEDS: LACTOBACILLUS ACIDOPHILUS/BULGARICUS TABLET PO SCH ×2 (09:00→20:38)
[2019-05-12] MEDS: PANTOPRAZOLE SODIUM 40 MG DR TABLET PO SCH (09:00)
[2019-05-12] MEDS: GuaiFENesin SR 600 MG ER TABLET PO SCH ×3 (09:00→21:00)
[2019-05-12 09:11] LABS: ABG A-A DIFF O2 96.1 mmHg (10-20.0); ABG BASE EXCESS 2.7 mmol/L (-2.0-3.0); ABG HCO3 26.9 mmol/L (22.0-26.0); ABG METHEMOGLOBIN 0.3 % (0.0-1.5); ABG OXYGEN CONTENT 10.9 mL/dL (15.0-23.0); ABG OXYGEN SATURATION 96.7 % (95.0-98.0); ABG OXYHEMOGLOBIN 95.4 % (94.0-100.0); ABG PCO2 33 mmHg (35-45); ABG PH 7.504 (7.35-7.450); PO2, ARTERIAL BG 91.8 mmHg (88.0-96.0); SOURCE, BLOOD GAS ARTERIAL; TEMPERATURE, FAHRENHEIT, BG 100.9 FAHREN (96.0-98.6)
[2019-05-12] MEDS: VANCOMYCIN HCL 1.25 GM in DEXTROSE 5%-WATER 250 ML IV SCH ×2 (09:11→20:37)
[2019-05-12 09:13] LABS: O2 DEVICE,BLOOD GAS CANNULA (ROOM AIR); SITE, BLOOD GAS LFT RADIAL
[2019-05-12] MEDS: ACETAMINOPHEN 650 MG RECTAL SUPPOSITORY PR PRN ×2 (10:17→22:12)
[2019-05-12] MEDS: CEFTAROLINE 600 MG/D5W 250 ML IV SCH ×2 (11:51→23:52)
[2019-05-12] MEDS ORDERED: RAPID SEQUENCE KIT [RSI] 1 EACH KIT ONE (12:39)
[2019-05-12] MEDS ORDERED: PROPOFOL 1000 MG/ISO-OSM 100 ML IV ONE (12:40)
[2019-05-12] MEDS: PROPOFOL 1000 MG/ISO-OSM 100 ML IV PRN ×2 (13:00→20:37)
[2019-05-12] MEDS ORDERED: ETOMIDATE 2 MG/ML 10 ML VIAL IVP ONE (13:00)
[2019-05-12] MEDS ORDERED: VECURONIUM BROMIDE 10 MG/VIAL IVP ONE (13:00)
[2019-05-12] MEDS ORDERED: PNEUMOCOCCAL VACCINE POLYVALENT 0.5 ML VIAL [PPSV23] IM ONE (13:45)
[2019-05-12] MEDS ORDERED: GADOBUTROL 1 MMOL/ML 10 ML VIAL IVP ONE (14:05)
[2019-05-12 14:22] LABS: ABG A-A DIFF O2 431.5 mmHg (10-20.0); ABG BASE EXCESS 2.8 mmol/L (-2.0-3.0); ABG CARBOXYHEMOGLOBIN 0.9 % (0.0-1.5); ABG HCO3 26.9 mmol/L (22.0-26.0); ABG METHEMOGLOBIN 0.3 % (0.0-1.5); ABG OXYGEN CONTENT 11.8 mL/dL (15.0-23.0); ABG OXYGEN SATURATION 99.6 % (95.0-98.0); ABG OXYHEMOGLOBIN 98.4 % (94.0-100.0); ABG PCO2 41 mmHg (35-45); ABG PH 7.436 (7.35-7.450); ABG TOTAL HEMOGLOBIN 8.1 G/dL (12.0-18.0); SOURCE, BLOOD GAS ARTERIAL; TEMPERATURE, FAHRENHEIT, BG 99.5 FAHREN (96.0-98.6)
[2019-05-12 14:27] LABS: O2 DEVICE,BLOOD GAS VENTILATOR (ROOM AIR); PEEP,BG 5 cm H2O; SITE, BLOOD GAS LFT RADIAL; SPONTANEOUS VT, BG 450 ml; VT, ABG 475 ml
[2019-05-12 16:27] LABS: AMPHET/METH SCREEN,URINE NEGATIVE (NEGATIVE); BARBITURATE SCREEN, URINE NEGATIVE (NEGATIVE); BENZODIAZEPINES SCREEN,URINE POSITIVE (NEGATIVE); CANNABINOID SCREEN,URINE NEGATIVE (NEGATIVE); COCAINE SCREEN,URINE NEGATIVE (NEGATIVE); METHADONE SCREEN, URINE NEGATIVE (NEGATIVE); OPIATE SCREEN,URINE POSITIVE (NEGATIVE)
[2019-05-12 16:31] LABS: PHENCYCLIDINE SCREEN,URINE NEGATIVE (NEGATIVE)
[2019-05-12] MEDS ORDERED: CASPOFUNGIN ACETATE IV SCH (20:00)
[2019-05-12] MEDS ORDERED: SODIUM CHLORIDE 0.9% IV SCH (20:00)
[2019-05-12] MEDS ORDERED: POTASSIUM CHLORIDE 20 MEQ ER TABLET PO PRN (23:00)
[2019-05-13] VITALS: BP 129/71
[2019-05-13 00:16] LABS: ANION GAP 7 mmol/L (8-16); CALCIUM, TOTAL 8.8 mg/dL (8.8-10.5); CARBON DIOXIDE 32 mmol/L (22-29); CHLORIDE 103 mmol/L (98-107); CREATININE 0.93 mg/dL (0.60-1.30); GLOMERULAR FILTR. RATE CALC > 60 mL/min (>60); GLUCOSE,RANDOM 113 mg/dL (70-110); SODIUM SERUM 142 mmol/L (136-145); UREA NITROGEN, BLOOD 18 mg/dL (7-18)
[2019-05-13 00:25] LABS: POTASSIUM 2.9 mmol/L (3.5-5.1)
[2019-05-13] MEDS ORDERED: SODIUM CHLORIDE 0.9% 250 ML IV ONE ×2 (00:26→04:47)
[2019-05-13] MEDS: POTASSIUM CHL 10 MEQ/WATER 50 ML IV PRN ×7 (00:27→10:48)
[2019-05-13] MEDS: PROPOFOL 1000 MG/ISO-OSM 100 ML IV PRN ×6 (01:02→22:06)
[2019-05-13 04:00] VITALS: BP 109/67
[2019-05-13] MEDS: LORazepam 2 MG/ML VIAL IVP PRN (05:03)
[2019-05-13 05:15] LABS: BASOPHILS % (AUTO) 0.8 % (0.0-2.0); EOSINOPHILS % (AUTO) 1.5 % (1.0-6.0); HEMATOCRIT 24.5 % (36-46); HEMOGLOBIN 7.7 g/dL (12.0-16.0); LYMPHOCYTES # (AUTO) 0.9 K/uL (1.0-4.8); LYMPHOCYTES % (AUTO) 9.8 % (22.0-44.0); MEAN CORPUSCULAR HEMOGLOBIN 22.9 pg (26.0-34.0); MEAN CORPUSCULAR HGB CONC 31.5 G/dL (31.0-37.0); MEAN CORPUSCULAR VOLUME 73 fL (80-100); MONOCYTES # (AUTO) 0.8 K/uL (0.1-1.0); MONOCYTES % (AUTO) 8.7 % (2.0-9.0); NEUTROPHILS # (AUTO) 7.5 K/uL (1.8-7.7); NEUTROPHILS % (AUTO) 79.2 % (40.0-70.0); PLATELET COUNT (AUTO) 283 K/uL (150-450); RED BLOOD CELL COUNT(AUTO) 3.37 MIL/uL (4.00-5.20); RED CELL DISTRIBUTION WIDTH 18.1 % (11.5-14.5)
[2019-05-13 05:40] LABS: ANION GAP 8 mmol/L (8-16); CALCIUM, TOTAL 8.9 mg/dL (8.8-10.5); CARBON DIOXIDE 29 mmol/L (22-29); CHLORIDE 103 mmol/L (98-107); CREATININE 0.86 mg/dL (0.60-1.30); GLOMERULAR FILTR. RATE CALC > 60 mL/min (>60); GLUCOSE,RANDOM 110 mg/dL (70-110); POTASSIUM 3.6 mmol/L (3.5-5.1); SODIUM SERUM 140 mmol/L (136-145); UREA NITROGEN, BLOOD 19 mg/dL (7-18); VANCOMYCIN,RANDOM 18.5 mcg/mL (25.0-50.0)
[2019-05-13 08:00] VITALS: BP 115/68
[2019-05-13] MEDS: VANCOMYCIN HCL 1.25 GM in DEXTROSE 5%-WATER 250 ML IV SCH ×2 (08:28→20:00)
[2019-05-13] MEDS: FUROSEMIDE 20 MG/2 ML VIAL IVP SCH ×2 (08:29→20:08)
[2019-05-13] MEDS: HEPARIN SODIUM,PORCINE 5,000 UNITS/ML VIAL SQ SCH ×2 (08:29→22:09)
[2019-05-13] MEDS: GuaiFENesin SR 600 MG ER TABLET PO SCH ×2 (09:00→22:15)
[2019-05-13] MEDS: LACTOBACILLUS ACIDOPHILUS/BULGARICUS TABLET PO SCH ×2 (09:00→22:15)
[2019-05-13] MEDS: ASPIRIN 81 MG CHEWABLE TABLET PO SCH ×2 (09:00→09:40)
[2019-05-13] MEDS: PANTOPRAZOLE SODIUM 40 MG DR TABLET PO SCH ×2 (09:00→09:39)
[2019-05-13] MEDS: ACETAMINOPHEN 325 MG TABLET PO PRN (09:39)
[2019-05-13] MEDS: CEFTAROLINE 600 MG/D5W 250 ML IV SCH (10:49)
[2019-05-13 12:00] VITALS: BP 130/78
[2019-05-13] MEDS: NAFCILLIN SODIUM 2 GM in DEXTROSE 5%-WATER 100 ML IV SCH ×3 (12:10→20:00)
[2019-05-13 15:23] LABS: APPEARANCE,URINE CLOUDY (CLEAR); BILIRUBIN,URINE NEGATIVE (NEGATIVE); GLUCOSE, URINE (UA) NEGATIVE (NEGATIVE); KETONES,URINE NEGATIVE (NEGATIVE); LEUKOCYTE ESTERASE ,URINE NEGATIVE (NEGATIVE); NITRATE,URINE NEGATIVE (NEGATIVE); OCCULT BLOOD,URINE SMALL (NEGATIVE); PROTEIN,URINE POS 1+ (NEGATIVE); UROBILINOGEN,URINE 0.2 mg/dL (<=1.0)
[2019-05-13 15:32] LABS: BACTERIA,URINE Few /HPF (None Seen); SQUAMOUS EPITHELIAL CELL,UR Few /LPF (None Seen)
[2019-05-13 16:00] VITALS: BP 133/80
[2019-05-13] MEDS: ACETAMINOPHEN 650 MG RECTAL SUPPOSITORY PR PRN (20:08)
[2019-05-13 20:55] VITALS: BP 135/78
[2019-05-14] VITALS: BP 143/83
[2019-05-14] MEDS: NAFCILLIN SODIUM 2 GM in DEXTROSE 5%-WATER 100 ML IV SCH ×7 (00:26→23:59)
[2019-05-14] MEDS: PROPOFOL 1000 MG/ISO-OSM 100 ML IV PRN ×5 (01:44→16:02)
[2019-05-14 04:00] VITALS: BP 128/79
[2019-05-14] MEDS ORDERED: SODIUM CHLORIDE 0.9% 250 ML IV ONE ×2 (04:29→04:30)
[2019-05-14 04:59] LABS: BASOPHILS % (AUTO) 0.1 % (0.0-2.0); EOSINOPHILS % (AUTO) 0.5 % (1.0-6.0); HEMATOCRIT 24.4 % (36-46); HEMOGLOBIN 7.7 g/dL (12.0-16.0); LYMPHOCYTES # (AUTO) 1.4 K/uL (1.0-4.8); LYMPHOCYTES % (AUTO) 11.5 % (22.0-44.0); MEAN CORPUSCULAR HEMOGLOBIN 22.7 pg (26.0-34.0); MEAN CORPUSCULAR HGB CONC 31.4 G/dL (31.0-37.0); MEAN CORPUSCULAR VOLUME 72 fL (80-100); MONOCYTES # (AUTO) 0.9 K/uL (0.1-1.0); MONOCYTES % (AUTO) 7.4 % (2.0-9.0); NEUTROPHILS # (AUTO) 9.8 K/uL (1.8-7.7); NEUTROPHILS % (AUTO) 80.5 % (40.0-70.0); PLATELET COUNT (AUTO) 336 K/uL (150-450); RED BLOOD CELL COUNT(AUTO) 3.39 MIL/uL (4.00-5.20); RED CELL DISTRIBUTION WIDTH 18.2 % (11.5-14.5)
[2019-05-14 05:16] LABS: ANION GAP 6 mmol/L (8-16); CALCIUM, TOTAL 8.9 mg/dL (8.8-10.5); CARBON DIOXIDE 32 mmol/L (22-29); CHLORIDE 99 mmol/L (98-107); CREATININE 0.84 mg/dL (0.60-1.30); GLOMERULAR FILTR. RATE CALC > 60 mL/min (>60); GLUCOSE,RANDOM 116 mg/dL (70-110); POTASSIUM 3.1 mmol/L (3.5-5.1); SODIUM SERUM 137 mmol/L (136-145); UREA NITROGEN, BLOOD 18 mg/dL (7-18)
[2019-05-14] MEDS ORDERED: BENZOCAINE 20% 50 MCG/SPRAY 57 GM TP ONE (06:42)
[2019-05-14] MEDS: POTASSIUM CHL 10 MEQ/WATER 50 ML IV PRN ×8 (06:44→23:10)
[2019-05-14 08:00] VITALS: BP 133/80
[2019-05-14] MEDS ORDERED: VANCOMYCIN HCL 1.5 GM in DEXTROSE 5%-WATER 250 ML IV ONE (08:00)
[2019-05-14] MEDS: FUROSEMIDE 20 MG/2 ML VIAL IVP SCH ×2 (09:50→20:42)
[2019-05-14] MEDS: HEPARIN SODIUM,PORCINE 5,000 UNITS/ML VIAL SQ SCH ×2 (09:51→20:42)
[2019-05-14] MEDS: ASPIRIN 81 MG CHEWABLE TABLET PO SCH (09:51)
[2019-05-14] MEDS: LACTOBACILLUS ACIDOPHILUS/BULGARICUS TABLET PO SCH ×2 (09:51→20:42)
[2019-05-14] MEDS: GuaiFENesin SR 600 MG ER TABLET PO SCH ×2 (09:51→20:42)
[2019-05-14] MEDS: PANTOPRAZOLE SODIUM 40 MG DR TABLET PO SCH (09:51)
[2019-05-14] MEDS ORDERED: IOVERSOL 350 MG/ML 100 ML VIAL ONE (10:15)
[2019-05-14] MEDS ORDERED: SODIUM CHLORIDE 0.9% 100 ML ONE (10:15)
[2019-05-14] MEDS ORDERED: BARIUM SULFATE 0.1% SUSPENSION 450 ML BOTTLE ONE (10:16)
[2019-05-14 10:27] LABS: ABG A-A DIFF O2 119.1 mmHg (10-20.0); ABG BASE EXCESS 3.7 mmol/L (-2.0-3.0); ABG CARBOXYHEMOGLOBIN 0.1 % (0.0-1.5); ABG HCO3 27.7 mmol/L (22.0-26.0); ABG METHEMOGLOBIN 0.3 % (0.0-1.5); ABG OXYGEN CONTENT 12.7 mL/dL (15.0-23.0); ABG OXYGEN SATURATION 97.1 % (95.0-98.0); ABG OXYHEMOGLOBIN 96.7 % (94.0-100.0); ABG PCO2 35 mmHg (35-45); ABG PH 7.503 (7.35-7.450); ABG TOTAL HEMOGLOBIN 9.2 G/dL (12.0-18.0); PO2, ARTERIAL BG 90.1 mmHg (88.0-96.0); SITE, BLOOD GAS LFT RADIAL; SOURCE, BLOOD GAS ARTERIAL; TEMPERATURE, FAHRENHEIT, BG 97.9 FAHREN (96.0-98.6)
[2019-05-14 10:28] LABS: O2 DEVICE,BLOOD GAS VENTILATOR (ROOM AIR); PEEP,BG 5 cm H2O; VT, ABG 475 ml
[2019-05-14] MEDS: SODIUM CHLORIDE 0.9% 1,000 ML IV SCH ×2 (10:45→23:57)
[2019-05-14 12:00] VITALS: BP 130/80
[2019-05-14] MEDS: LEVOFLOXACIN 750 MG/D5% WATER 150 ML IV SCH (13:57)
[2019-05-14 16:00] VITALS: BP 136/79
[2019-05-14] MEDS ORDERED: VANCOMYCIN HCL 1.5 GM in DEXTROSE 5%-WATER 250 ML IV SCH (19:00)
[2019-05-14 20:00] VITALS: BP 135/79
[2019-05-15] VITALS (9 sets, daily range): BP systolic 126–143; BP diastolic 67–83
[2019-05-15] MEDS: PROPOFOL 1000 MG/ISO-OSM 100 ML IV PRN ×7 (00:12→23:37)
[2019-05-15] MEDS: POTASSIUM CHL 10 MEQ/WATER 50 ML IV PRN ×4 (00:42→04:59)
[2019-05-15] MEDS: NAFCILLIN SODIUM 2 GM in DEXTROSE 5%-WATER 100 ML IV SCH ×6 (03:28→23:36)
[2019-05-15 07:27] LABS: BASOPHILS % (AUTO) 0.1 % (0.0-2.0); EOSINOPHILS % (AUTO) 0.6 % (1.0-6.0); HEMOGLOBIN 8.7 g/dL (12.0-16.0); LYMPHOCYTES # (AUTO) 1.6 K/uL (1.0-4.8); LYMPHOCYTES % (AUTO) 14.3 % (22.0-44.0); MEAN CORPUSCULAR HEMOGLOBIN 23.1 pg (26.0-34.0); MEAN CORPUSCULAR HGB CONC 32.2 G/dL (31.0-37.0); MEAN CORPUSCULAR VOLUME 72 fL (80-100); MONOCYTES # (AUTO) 0.9 K/uL (0.1-1.0); MONOCYTES % (AUTO) 8.7 % (2.0-9.0); NEUTROPHILS # (AUTO) 8.3 K/uL (1.8-7.7); NEUTROPHILS % (AUTO) 76.3 % (40.0-70.0); PLATELET COUNT (AUTO) 442 K/uL (150-450); RED BLOOD CELL COUNT(AUTO) 3.75 MIL/uL (4.00-5.20)
[2019-05-15] MEDS ORDERED: SODIUM CHLORIDE 0.9% 250 ML IV ONE (07:31)
[2019-05-15 07:35] LABS: ALANINE AMINOTRANSFERASE 10 U/L (12-78); ALBUMIN 1.7 g/dL (3.4-5.0); ALKALINE PHOSPHATASE 259 U/L (46-116); ANION GAP 6 mmol/L (8-16); ASPARTATE AMINOTRANSFERASE 21 U/L (15-37); BILIRUBIN,TOTAL 0.7 mg/dL (0.1-1.0); CALCIUM, TOTAL 8.7 mg/dL (8.8-10.5); CARBON DIOXIDE 30 mmol/L (22-29); CHLORIDE 102 mmol/L (98-107); CREATININE 0.79 mg/dL (0.60-1.30); GLOMERULAR FILTR. RATE CALC > 60 mL/min (>60); GLUCOSE,RANDOM 129 mg/dL (70-110); POTASSIUM 3.5 mmol/L (3.5-5.1); SODIUM SERUM 138 mmol/L (136-145); TOTAL PROTEIN, SERUM 6.6 g/dL (6.4-8.2); UREA NITROGEN, BLOOD 19 mg/dL (7-18)
[2019-05-15] MEDS: FUROSEMIDE 20 MG/2 ML VIAL IVP SCH ×2 (08:18→20:52)
[2019-05-15] MEDS: HEPARIN SODIUM,PORCINE 5,000 UNITS/ML VIAL SQ SCH ×2 (08:18→20:52)
[2019-05-15] MEDS: LACTOBACILLUS ACIDOPHILUS/BULGARICUS TABLET PO SCH ×2 (08:18→20:52)
[2019-05-15] MEDS: GuaiFENesin SR 600 MG ER TABLET PO SCH ×2 (08:18→20:52)
[2019-05-15] MEDS: PANTOPRAZOLE SODIUM 40 MG DR TABLET PO SCH (08:18)
[2019-05-15] MEDS: ASPIRIN 81 MG CHEWABLE TABLET PO SCH (08:19)
[2019-05-15 09:35] LABS: ABG A-A DIFF O2 84.4 mmHg (10-20.0); ABG BASE EXCESS 5.6 mmol/L (-2.0-3.0); ABG CARBOXYHEMOGLOBIN 0.2 % (0.0-1.5); ABG HCO3 29.4 mmol/L (22.0-26.0); ABG METHEMOGLOBIN 0.3 % (0.0-1.5); ABG OXYGEN SATURATION 98.7 % (95.0-98.0); ABG OXYHEMOGLOBIN 98.2 % (94.0-100.0); ABG PCO2 35 mmHg (35-45); ABG PH 7.522 (7.35-7.450); PO2, ARTERIAL BG 123.9 mmHg (88.0-96.0); SOURCE, BLOOD GAS ARTERIAL
[2019-05-15 09:36] LABS: SITE, BLOOD GAS RT RADIAL
[2019-05-15 09:37] LABS: O2 DEVICE,BLOOD GAS VENTILATOR (ROOM AIR); PEEP,BG 5 cm H2O; VT, ABG 475 ml
[2019-05-15] MEDS: LEVOFLOXACIN 750 MG/D5% WATER 150 ML IV SCH (12:27)
[2019-05-16] VITALS (8 sets, daily range): BP systolic 122–136; BP diastolic 62–78
[2019-05-16] MEDS: NAFCILLIN SODIUM 2 GM in DEXTROSE 5%-WATER 100 ML IV SCH ×6 (03:54→23:47)
[2019-05-16] MEDS: PROPOFOL 1000 MG/ISO-OSM 100 ML IV PRN ×6 (03:55→23:48)
[2019-05-16 05:20] LABS: BASOPHILS % (AUTO) 1.2 % (0.0-2.0); EOSINOPHILS % (AUTO) 1.6 % (1.0-6.0); HEMOGLOBIN 8.2 g/dL (12.0-16.0); LYMPHOCYTES # (AUTO) 1.7 K/uL (1.0-4.8); LYMPHOCYTES % (AUTO) 13.9 % (22.0-44.0); MEAN CORPUSCULAR HEMOGLOBIN 22.7 pg (26.0-34.0); MEAN CORPUSCULAR HGB CONC 31.6 G/dL (31.0-37.0); MEAN CORPUSCULAR VOLUME 72 fL (80-100); MONOCYTES % (AUTO) 8.4 % (2.0-9.0); NEUTROPHILS # (AUTO) 8.9 K/uL (1.8-7.7); NEUTROPHILS % (AUTO) 74.9 % (40.0-70.0); PLATELET COUNT (AUTO) 414 K/uL (150-450); RED BLOOD CELL COUNT(AUTO) 3.61 MIL/uL (4.00-5.20); RED CELL DISTRIBUTION WIDTH 18.5 % (11.5-14.5)
[2019-05-16 05:36] LABS: ALANINE AMINOTRANSFERASE 20 U/L (12-78); ALBUMIN 1.7 g/dL (3.4-5.0); ALKALINE PHOSPHATASE 212 U/L (46-116); ANION GAP 8 mmol/L (8-16); ASPARTATE AMINOTRANSFERASE 36 U/L (15-37); BILIRUBIN,TOTAL 0.7 mg/dL (0.1-1.0); CALCIUM, TOTAL 8.9 mg/dL (8.8-10.5); CARBON DIOXIDE 32 mmol/L (22-29); CHLORIDE 101 mmol/L (98-107); CREATININE 0.77 mg/dL (0.60-1.30); GLOMERULAR FILTR. RATE CALC > 60 mL/min (>60); GLUCOSE,RANDOM 143 mg/dL (70-110); SODIUM SERUM 141 mmol/L (136-145); TOTAL PROTEIN, SERUM 6.4 g/dL (6.4-8.2); UREA NITROGEN, BLOOD 20 mg/dL (7-18)
[2019-05-16 05:45] LABS: POTASSIUM 2.7 mmol/L (3.5-5.1)
[2019-05-16] MEDS: POTASSIUM CHL 10 MEQ/WATER 50 ML IV PRN ×10 (05:51→21:49)
[2019-05-16] MEDS: LACTOBACILLUS ACIDOPHILUS/BULGARICUS TABLET PO SCH ×2 (08:36→20:25)
[2019-05-16] MEDS: HEPARIN SODIUM,PORCINE 5,000 UNITS/ML VIAL SQ SCH ×2 (08:37→20:25)
[2019-05-16] MEDS: FUROSEMIDE 20 MG/2 ML VIAL IVP SCH ×2 (08:37→20:24)
[2019-05-16] MEDS: ASPIRIN 81 MG CHEWABLE TABLET PO SCH (08:37)
[2019-05-16 08:47] LABS: ABG A-A DIFF O2 65.7 mmHg (10-20.0); ABG BASE EXCESS 8.4 mmol/L (-2.0-3.0); ABG CARBOXYHEMOGLOBIN 0.5 % (0.0-1.5); ABG HCO3 31.8 mmol/L (22.0-26.0); ABG METHEMOGLOBIN 0.3 % (0.0-1.5); ABG OXYGEN CONTENT 13.3 mL/dL (15.0-23.0); ABG OXYHEMOGLOBIN 98.2 % (94.0-100.0); ABG PCO2 36 mmHg (35-45); ABG TOTAL HEMOGLOBIN 9.4 G/dL (12.0-18.0); SOURCE, BLOOD GAS ARTERIAL; TEMPERATURE, FAHRENHEIT, BG 98.6 FAHREN (96.0-98.6)
[2019-05-16 08:48] LABS: O2 DEVICE,BLOOD GAS VENTILATOR (ROOM AIR); PEEP,BG 5 cm H2O; SITE, BLOOD GAS RT RADIAL; VT, ABG 475 ml
[2019-05-16] MEDS ORDERED: SODIUM CHLORIDE 0.9% 250 ML IV ONE ×2 (08:53→15:46)
[2019-05-16] MEDS: PANTOPRAZOLE SODIUM 40 MG DR TABLET PO SCH (09:00)
[2019-05-16] MEDS: GuaiFENesin SR 600 MG ER TABLET PO SCH ×2 (09:00→20:25)
[2019-05-16] MEDS: MULTIVITAMINS WITH MINERALS, THERAPEUTIC 15 ML UDCUP PO SCH (09:54)
[2019-05-16] MEDS: LORazepam 2 MG/ML VIAL IVP PRN (10:43)
[2019-05-16] MEDS: LEVOFLOXACIN 750 MG/D5% WATER 150 ML IV SCH (13:31)
[2019-05-17] VITALS (7 sets, daily range): BP systolic 114–122; BP diastolic 64–74
[2019-05-17] MEDS: PROPOFOL 1000 MG/ISO-OSM 100 ML IV PRN ×6 (02:55→23:54)
[2019-05-17] MEDS: NAFCILLIN SODIUM 2 GM in DEXTROSE 5%-WATER 100 ML IV SCH ×6 (04:22→23:53)
[2019-05-17] MEDS: POTASSIUM CHLORIDE 10% 40 MEQ/30 ML LIQUID UDCUP NG PRN (04:23)
[2019-05-17 07:49] LABS: BASOPHILS % (AUTO) 0.6 % (0.0-2.0); EOSINOPHILS % (AUTO) 2.7 % (1.0-6.0); HEMATOCRIT 26.9 % (36-46); HEMOGLOBIN 8.5 g/dL (12.0-16.0); LYMPHOCYTES # (AUTO) 1.7 K/uL (1.0-4.8); LYMPHOCYTES % (AUTO) 14.1 % (22.0-44.0); MEAN CORPUSCULAR HEMOGLOBIN 22.9 pg (26.0-34.0); MEAN CORPUSCULAR HGB CONC 31.7 G/dL (31.0-37.0); MEAN CORPUSCULAR VOLUME 72 fL (80-100); MONOCYTES % (AUTO) 8.4 % (2.0-9.0); NEUTROPHILS % (AUTO) 74.2 % (40.0-70.0); PLATELET COUNT (AUTO) 459 K/uL (150-450); RED BLOOD CELL COUNT(AUTO) 3.73 MIL/uL (4.00-5.20); RED CELL DISTRIBUTION WIDTH 18.4 % (11.5-14.5)
[2019-05-17 07:59] LABS: ANION GAP 14 mmol/L (8-16); CALCIUM, TOTAL 9.1 mg/dL (8.8-10.5); CARBON DIOXIDE 31 mmol/L (22-29); CHLORIDE 102 mmol/L (98-107); CREATININE 0.66 mg/dL (0.60-1.30); GLOMERULAR FILTR. RATE CALC > 60 mL/min (>60); GLUCOSE,RANDOM 119 mg/dL (70-110); SODIUM SERUM 147 mmol/L (136-145)
[2019-05-17 08:04] LABS: UREA NITROGEN, BLOOD 19 mg/dL (7-18)
[2019-05-17] MEDS: MULTIVITAMINS WITH MINERALS, THERAPEUTIC 15 ML UDCUP PO SCH (08:08)
[2019-05-17] MEDS: GuaiFENesin SR 600 MG ER TABLET PO SCH ×2 (08:08→20:19)
[2019-05-17] MEDS: PANTOPRAZOLE SODIUM 40 MG DR TABLET PO SCH (08:08)
[2019-05-17] MEDS: LACTOBACILLUS ACIDOPHILUS/BULGARICUS TABLET PO SCH ×2 (08:09→20:19)
[2019-05-17] MEDS: FUROSEMIDE 20 MG/2 ML VIAL IVP SCH ×2 (08:09→20:19)
[2019-05-17] MEDS: ASPIRIN 81 MG CHEWABLE TABLET PO SCH (08:09)
[2019-05-17] MEDS: HEPARIN SODIUM,PORCINE 5,000 UNITS/ML VIAL SQ SCH ×2 (08:09→20:20)
[2019-05-17 08:20] LABS: ABG A-A DIFF O2 69.5 mmHg (10-20.0); ABG BASE EXCESS 6.9 mmol/L (-2.0-3.0); ABG CARBOXYHEMOGLOBIN 0.8 % (0.0-1.5); ABG HCO3 30.3 mmol/L (22.0-26.0); ABG METHEMOGLOBIN 0.3 % (0.0-1.5); ABG OXYGEN CONTENT 15.8 mL/dL (15.0-23.0); ABG OXYGEN SATURATION 98.8 % (95.0-98.0); ABG OXYHEMOGLOBIN 97.7 % (94.0-100.0); ABG PCO2 39 mmHg (35-45); ABG PH 7.501 (7.35-7.450); ABG TOTAL HEMOGLOBIN 11.3 G/dL (12.0-18.0); PO2, ARTERIAL BG 134.4 mmHg (88.0-96.0); SOURCE, BLOOD GAS ARTERIAL; TEMPERATURE, FAHRENHEIT, BG 98.6 FAHREN (96.0-98.6)
[2019-05-17 08:21] LABS: SITE, BLOOD GAS RT RADIAL
[2019-05-17 08:22] LABS: O2 DEVICE,BLOOD GAS VENTILATOR (ROOM AIR); PEEP,BG 5 cm H2O; VT, ABG 475 ml
[2019-05-17] MEDS: LEVOFLOXACIN 750 MG/D5% WATER 150 ML IV SCH (12:40)
[2019-05-18] VITALS (10 sets, daily range): BP systolic 101–124; BP diastolic 58–82
[2019-05-18] MEDS: PROPOFOL 1000 MG/ISO-OSM 100 ML IV PRN ×4 (04:15→21:43)
[2019-05-18] MEDS: NAFCILLIN SODIUM 2 GM in DEXTROSE 5%-WATER 100 ML IV SCH ×6 (04:15→23:46)
[2019-05-18 05:15] LABS: BASOPHILS % (AUTO) 0.4 % (0.0-2.0); EOSINOPHILS % (AUTO) 3.1 % (1.0-6.0); HEMATOCRIT 27.8 % (36-46); HEMOGLOBIN 8.5 g/dL (12.0-16.0); LYMPHOCYTES # (AUTO) 1.9 K/uL (1.0-4.8); LYMPHOCYTES % (AUTO) 17.2 % (22.0-44.0); MEAN CORPUSCULAR HEMOGLOBIN 22.3 pg (26.0-34.0); MEAN CORPUSCULAR HGB CONC 30.7 G/dL (31.0-37.0); MEAN CORPUSCULAR VOLUME 73 fL (80-100); MONOCYTES # (AUTO) 0.8 K/uL (0.1-1.0); MONOCYTES % (AUTO) 6.8 % (2.0-9.0); NEUTROPHILS % (AUTO) 72.5 % (40.0-70.0); PLATELET COUNT (AUTO) 595 K/uL (150-450); RED BLOOD CELL COUNT(AUTO) 3.82 MIL/uL (4.00-5.20); RED CELL DISTRIBUTION WIDTH 18.6 % (11.5-14.5)
[2019-05-18 05:28] LABS: ANION GAP 6 mmol/L (8-16); CALCIUM, TOTAL 9.2 mg/dL (8.8-10.5); CARBON DIOXIDE 33 mmol/L (22-29); CHLORIDE 100 mmol/L (98-107); CREATININE 0.67 mg/dL (0.60-1.30); GLOMERULAR FILTR. RATE CALC > 60 mL/min (>60); GLUCOSE,RANDOM 125 mg/dL (70-110); POTASSIUM 3.5 mmol/L (3.5-5.1); SODIUM SERUM 139 mmol/L (136-145); UREA NITROGEN, BLOOD 23 mg/dL (7-18)
[2019-05-18] MEDS: PANTOPRAZOLE SODIUM 40 MG DR TABLET PO SCH (08:19)
[2019-05-18] MEDS: MULTIVITAMINS WITH MINERALS, THERAPEUTIC 15 ML UDCUP PO SCH (08:19)
[2019-05-18] MEDS: POTASSIUM CHLORIDE 10% 40 MEQ/30 ML LIQUID UDCUP NG SCH (08:19)
[2019-05-18] MEDS: LACTOBACILLUS ACIDOPHILUS/BULGARICUS TABLET PO SCH ×2 (08:19→20:20)
[2019-05-18] MEDS: HEPARIN SODIUM,PORCINE 5,000 UNITS/ML VIAL SQ SCH ×2 (08:20→20:21)
[2019-05-18] MEDS: GuaiFENesin SR 600 MG ER TABLET PO SCH ×2 (08:20→20:20)
[2019-05-18] MEDS: ASPIRIN 81 MG CHEWABLE TABLET PO SCH (08:20)
[2019-05-18] MEDS: FUROSEMIDE 20 MG/2 ML VIAL IVP SCH ×2 (08:21→20:20)
[2019-05-18] MEDS: LORazepam 2 MG/ML VIAL IVP PRN (09:44)
[2019-05-18] MEDS: ACETAMINOPHEN 325 MG TABLET PO PRN ×2 (10:21→15:41)
[2019-05-18] MEDS: POTASSIUM CHL 10 MEQ/WATER 50 ML IV PRN ×2 (10:42→12:08)
[2019-05-18] MEDS ORDERED: SODIUM CHLORIDE 0.9% 250 ML IV ONE (14:03)
[2019-05-18] MEDS: LEVOFLOXACIN 750 MG/D5% WATER 150 ML IV SCH (14:07)
[2019-05-18 15:18] LABS: ABG A-A DIFF O2 91.8 mmHg (10-20.0); ABG CARBOXYHEMOGLOBIN 0.8 % (0.0-1.5); ABG HCO3 30.4 mmol/L (22.0-26.0); ABG METHEMOGLOBIN 0.3 % (0.0-1.5); ABG OXYGEN CONTENT 12.8 mL/dL (15.0-23.0); ABG OXYGEN SATURATION 98.4 % (95.0-98.0); ABG OXYHEMOGLOBIN 97.3 % (94.0-100.0); ABG PCO2 40 mmHg (35-45); ABG PH 7.501 (7.35-7.450); ABG TOTAL HEMOGLOBIN 9.2 G/dL (12.0-18.0); PO2, ARTERIAL BG 111.1 mmHg (88.0-96.0); SOURCE, BLOOD GAS ARTERIAL
[2019-05-18 15:21] LABS: O2 DEVICE,BLOOD GAS VENTILATOR (ROOM AIR); SITE, BLOOD GAS RT RADIAL; VT, ABG 475 ml
[2019-05-18 15:22] LABS: PEEP,BG 5 cm H2O
[2019-05-18] MEDS: POTASSIUM CHLORIDE 10% 40 MEQ/30 ML LIQUID UDCUP NG PRN (17:30)
[2019-05-18] MEDS: POTASSIUM CHLORIDE 20 MEQ ER TABLET PO PRN (23:04)
[2019-05-19] VITALS (8 sets, daily range): BP systolic 107–116; BP diastolic 57–71
[2019-05-19] MEDS: LORazepam 2 MG/ML VIAL IVP PRN ×2 (01:37→11:58)
[2019-05-19] MEDS ORDERED: SODIUM CHLORIDE 0.9% 250 ML IV ONE ×2 (01:40→21:42)
[2019-05-19] MEDS: PROPOFOL 1000 MG/ISO-OSM 100 ML IV PRN ×5 (01:47→23:39)
[2019-05-19] MEDS: NAFCILLIN SODIUM 2 GM in DEXTROSE 5%-WATER 100 ML IV SCH ×6 (04:46→23:40)
[2019-05-19 04:49] LABS: BASOPHILS % (AUTO) 0.7 % (0.0-2.0); EOSINOPHILS % (AUTO) 3.5 % (1.0-6.0); HEMATOCRIT 25.7 % (36-46); LYMPHOCYTES # (AUTO) 1.6 K/uL (1.0-4.8); LYMPHOCYTES % (AUTO) 16.8 % (22.0-44.0); MEAN CORPUSCULAR HEMOGLOBIN 22.8 pg (26.0-34.0); MEAN CORPUSCULAR HGB CONC 31.2 G/dL (31.0-37.0); MEAN CORPUSCULAR VOLUME 73 fL (80-100); MONOCYTES # (AUTO) 0.8 K/uL (0.1-1.0); MONOCYTES % (AUTO) 8.2 % (2.0-9.0); NEUTROPHILS # (AUTO) 6.8 K/uL (1.8-7.7); NEUTROPHILS % (AUTO) 70.8 % (40.0-70.0); PLATELET COUNT (AUTO) 624 K/uL (150-450); RED BLOOD CELL COUNT(AUTO) 3.53 MIL/uL (4.00-5.20); RED CELL DISTRIBUTION WIDTH 18.8 % (11.5-14.5)
[2019-05-19 05:06] LABS: ALANINE AMINOTRANSFERASE 64 U/L (12-78); ALKALINE PHOSPHATASE 133 U/L (46-116); ANION GAP 5 mmol/L (8-16); ASPARTATE AMINOTRANSFERASE 48 U/L (15-37); BILIRUBIN,TOTAL 0.5 mg/dL (0.1-1.0); CALCIUM, TOTAL 9.4 mg/dL (8.8-10.5); CARBON DIOXIDE 32 mmol/L (22-29); CHLORIDE 101 mmol/L (98-107); CREATININE 0.69 mg/dL (0.60-1.30); GLOMERULAR FILTR. RATE CALC > 60 mL/min (>60); GLUCOSE,RANDOM 122 mg/dL (70-110); POTASSIUM 3.8 mmol/L (3.5-5.1); SODIUM SERUM 138 mmol/L (136-145); TOTAL PROTEIN, SERUM 7.1 g/dL (6.4-8.2); UREA NITROGEN, BLOOD 24 mg/dL (7-18)
[2019-05-19 05:13] LABS: B-TYPE NATRIURETIC PEPTIDE 81 pg/mL (0-100)
[2019-05-19] MEDS: LACTOBACILLUS ACIDOPHILUS/BULGARICUS TABLET PO SCH ×2 (08:22→20:28)
[2019-05-19] MEDS: ASPIRIN 81 MG CHEWABLE TABLET PO SCH (08:22)
[2019-05-19] MEDS: MULTIVITAMINS WITH MINERALS, THERAPEUTIC 15 ML UDCUP PO SCH (08:22)
[2019-05-19] MEDS: FUROSEMIDE 20 MG/2 ML VIAL IVP SCH ×2 (08:23→20:28)
[2019-05-19] MEDS: HEPARIN SODIUM,PORCINE 5,000 UNITS/ML VIAL SQ SCH (08:23)
[2019-05-19] MEDS: POTASSIUM CHLORIDE 10% 40 MEQ/30 ML LIQUID UDCUP NG SCH (08:24)
[2019-05-19] MEDS: GuaiFENesin SR 600 MG ER TABLET PO SCH ×2 (08:25→20:28)
[2019-05-19] MEDS: PANTOPRAZOLE SODIUM 40 MG DR TABLET PO SCH (08:25)
[2019-05-19] MEDS ORDERED: HEPARIN SODIUM,PORCINE 5,000 UNITS/ML VIAL IVP ONE (10:15)
[2019-05-19 10:52] LABS: EOSINOPHILS % (AUTO) 3.5 % (1.0-6.0); HEMATOCRIT 29.6 % (36-46); HEMOGLOBIN 9.2 g/dL (12.0-16.0); LYMPHOCYTES # (AUTO) 1.6 K/uL (1.0-4.8); LYMPHOCYTES % (AUTO) 16.2 % (22.0-44.0); MEAN CORPUSCULAR HEMOGLOBIN 22.6 pg (26.0-34.0); MEAN CORPUSCULAR HGB CONC 30.9 G/dL (31.0-37.0); MEAN CORPUSCULAR VOLUME 73 fL (80-100); MONOCYTES # (AUTO) 0.8 K/uL (0.1-1.0); MONOCYTES % (AUTO) 7.9 % (2.0-9.0); NEUTROPHILS # (AUTO) 7.2 K/uL (1.8-7.7); NEUTROPHILS % (AUTO) 71.4 % (40.0-70.0); PLATELET COUNT (AUTO) 729 K/uL (150-450); RED BLOOD CELL COUNT(AUTO) 4.05 MIL/uL (4.00-5.20); RED CELL DISTRIBUTION WIDTH 18.5 % (11.5-14.5)
[2019-05-19] MEDS: HEPARIN SODIUM 25000 UNITS/D5W 250 ML IV PRN (15:22)
[2019-05-19] MEDS: HEPARIN SODIUM,PORCINE 5,000 UNITS/ML VIAL IVP PRN (22:12)
[2019-05-19] MEDS: POTASSIUM CHLORIDE 20 MEQ ER TABLET PO PRN (22:13)
[2019-05-20] VITALS (8 sets, daily range): BP systolic 95–136; BP diastolic 53–80
[2019-05-20] MEDS ORDERED: 0.9% SODIUM CHLORIDE 15 ML NEB SOLUTION NEB ONE (02:12)
[2019-05-20] MEDS: PROPOFOL 1000 MG/ISO-OSM 100 ML IV PRN ×3 (02:57→11:20)
[2019-05-20] MEDS: NAFCILLIN SODIUM 2 GM in DEXTROSE 5%-WATER 100 ML IV SCH ×5 (04:13→19:28)
[2019-05-20 05:06] LABS: ALANINE AMINOTRANSFERASE 59 U/L (12-78); ALBUMIN 2.1 g/dL (3.4-5.0); ALKALINE PHOSPHATASE 129 U/L (46-116); ANION GAP 4 mmol/L (8-16); ASPARTATE AMINOTRANSFERASE 39 U/L (15-37); BILIRUBIN,TOTAL 0.5 mg/dL (0.1-1.0); CALCIUM, TOTAL 9.6 mg/dL (8.8-10.5); CARBON DIOXIDE 29 mmol/L (22-29); CHLORIDE 101 mmol/L (98-107); GLOMERULAR FILTR. RATE CALC > 60 mL/min (>60); GLUCOSE,RANDOM 125 mg/dL (70-110); POTASSIUM 4.1 mmol/L (3.5-5.1); SODIUM SERUM 134 mmol/L (136-145); TOTAL PROTEIN, SERUM 7.6 g/dL (6.4-8.2); UREA NITROGEN, BLOOD 24 mg/dL (7-18)
[2019-05-20] MEDS: HEPARIN SODIUM,PORCINE 5,000 UNITS/ML VIAL IVP PRN ×3 (05:24→19:32)
[2019-05-20] MEDS: HEPARIN SODIUM 25000 UNITS/D5W 250 ML IV PRN ×2 (06:22→19:32)
[2019-05-20 06:48] LABS: EOSINOPHILS % (AUTO) 3.4 % (1.0-6.0); HEMATOCRIT 27.6 % (36-46); HEMOGLOBIN 8.5 g/dL (12.0-16.0); LYMPHOCYTES # (AUTO) 1.8 K/uL (1.0-4.8); MEAN CORPUSCULAR HEMOGLOBIN 22.6 pg (26.0-34.0); MEAN CORPUSCULAR HGB CONC 30.9 G/dL (31.0-37.0); MEAN CORPUSCULAR VOLUME 73 fL (80-100); MONOCYTES # (AUTO) 0.9 K/uL (0.1-1.0); MONOCYTES % (AUTO) 7.6 % (2.0-9.0); NEUTROPHILS # (AUTO) 8.2 K/uL (1.8-7.7); RED BLOOD CELL COUNT(AUTO) 3.77 MIL/uL (4.00-5.20)
[2019-05-20 06:57] LABS: PLATELET COUNT (AUTO) 779 K/uL (150-450)
[2019-05-20 08:06] LABS: ABG BASE EXCESS 5.3 mmol/L (-2.0-3.0); ABG HCO3 28.8 mmol/L (22.0-26.0); ABG METHEMOGLOBIN 0.3 % (0.0-1.5); ABG OXYGEN CONTENT 13.2 mL/dL (15.0-23.0); ABG OXYGEN SATURATION 97.8 % (95.0-98.0); ABG OXYHEMOGLOBIN 96.5 % (94.0-100.0); ABG PCO2 44 mmHg (35-45); ABG PH 7.444 (7.35-7.450); ABG TOTAL HEMOGLOBIN 9.6 G/dL (12.0-18.0); PO2, ARTERIAL BG 102.6 mmHg (88.0-96.0); SOURCE, BLOOD GAS ARTERIAL; TEMPERATURE, FAHRENHEIT, BG 98.6 FAHREN (96.0-98.6)
[2019-05-20 08:15] LABS: O2 DEVICE,BLOOD GAS VENTILATOR (ROOM AIR); PEEP,BG 5 cm H2O; SITE, BLOOD GAS RT RADIAL; VT, ABG 475 ml
[2019-05-20] MEDS: PANTOPRAZOLE SODIUM 40 MG DR TABLET PO SCH (09:00)
[2019-05-20] MEDS: GuaiFENesin SR 600 MG ER TABLET PO SCH ×2 (09:00→21:00)
[2019-05-20] MEDS: ASPIRIN 81 MG CHEWABLE TABLET PO SCH (09:30)
[2019-05-20] MEDS: POTASSIUM CHLORIDE 10% 40 MEQ/30 ML LIQUID UDCUP NG SCH (09:30)
[2019-05-20] MEDS: LACTOBACILLUS ACIDOPHILUS/BULGARICUS TABLET PO SCH ×2 (09:30→21:00)
[2019-05-20] MEDS: MULTIVITAMINS WITH MINERALS, THERAPEUTIC 15 ML UDCUP PO SCH (09:30)
[2019-05-20] MEDS: FUROSEMIDE 20 MG/2 ML VIAL IVP SCH ×2 (09:30→21:00)
[2019-05-20 13:33] LABS: ABG A-A DIFF O2 102.3 mmHg (10-20.0); ABG BASE EXCESS 6.3 mmol/L (-2.0-3.0); ABG CARBOXYHEMOGLOBIN 0.5 % (0.0-1.5); ABG HCO3 29.8 mmol/L (22.0-26.0); ABG METHEMOGLOBIN 0.3 % (0.0-1.5); ABG OXYGEN CONTENT 13.7 mL/dL (15.0-23.0); ABG OXYGEN SATURATION 97.9 % (95.0-98.0); ABG OXYHEMOGLOBIN 97.1 % (94.0-100.0); ABG PCO2 40 mmHg (35-45); ABG PH 7.489 (7.35-7.450); ABG TOTAL HEMOGLOBIN 9.9 G/dL (12.0-18.0); PO2, ARTERIAL BG 100.9 mmHg (88.0-96.0); SOURCE, BLOOD GAS ARTERIAL; TEMPERATURE, FAHRENHEIT, BG 98.6 FAHREN (96.0-98.6)
[2019-05-20 13:34] LABS: CPAP, BG 0 cm H2O; O2 DEVICE,BLOOD GAS VENTILATOR (ROOM AIR); PEEP,BG 0 cm H2O; PRESSURE SUPPORT, BG 8 cm H2O; SITE, BLOOD GAS RT RADIAL; SPONTANEOUS VT, BG 568 ml; VENT MODE, BG SPONTANEOUS (ROOM AIR)
[2019-05-20] MEDS: LORazepam 2 MG/ML VIAL IVP PRN ×2 (18:37→22:34)
[2019-05-20] MEDS: ACETAMINOPHEN 325 MG TABLET PO PRN (19:29)
[2019-05-20] MEDS: MORPHINE SULFATE 2 MG/ML SYRINGE IVP PRN (21:16)
[2019-05-21] VITALS: BP 93/53
[2019-05-21] MEDS: NAFCILLIN SODIUM 2 GM in DEXTROSE 5%-WATER 100 ML IV SCH ×7 (00:11→23:54)
[2019-05-21] MEDS ORDERED: SODIUM CHLORIDE 0.9% 250 ML IV ONE (01:15)
[2019-05-21] MEDS: LORazepam 2 MG/ML VIAL IVP PRN ×4 (01:28→20:49)
[2019-05-21 04:00] VITALS: BP 117/71
[2019-05-21] MEDS: MORPHINE SULFATE 2 MG/ML SYRINGE IVP PRN ×3 (04:19→23:54)
[2019-05-21] MEDS: ACETAMINOPHEN 325 MG TABLET PO PRN (04:26)
[2019-05-21 05:07] LABS: BASOPHILS % (AUTO) 1.2 % (0.0-2.0); EOSINOPHILS % (AUTO) 2.7 % (1.0-6.0); HEMATOCRIT 27.8 % (36-46); HEMOGLOBIN 8.8 g/dL (12.0-16.0); LYMPHOCYTES # (AUTO) 1.6 K/uL (1.0-4.8); LYMPHOCYTES % (AUTO) 13.2 % (22.0-44.0); MEAN CORPUSCULAR HEMOGLOBIN 22.9 pg (26.0-34.0); MEAN CORPUSCULAR HGB CONC 31.5 G/dL (31.0-37.0); MEAN CORPUSCULAR VOLUME 73 fL (80-100); MONOCYTES # (AUTO) 1.1 K/uL (0.1-1.0); NEUTROPHILS # (AUTO) 8.7 K/uL (1.8-7.7); NEUTROPHILS % (AUTO) 73.9 % (40.0-70.0); RED BLOOD CELL COUNT(AUTO) 3.83 MIL/uL (4.00-5.20); RED CELL DISTRIBUTION WIDTH 19.7 % (11.5-14.5)
[2019-05-21 05:16] LABS: ANION GAP 7 mmol/L (8-16); CALCIUM, TOTAL 9.6 mg/dL (8.8-10.5); CARBON DIOXIDE 29 mmol/L (22-29); CHLORIDE 99 mmol/L (98-107); CREATININE 0.66 mg/dL (0.60-1.30); GLOMERULAR FILTR. RATE CALC > 60 mL/min (>60); GLUCOSE,RANDOM 121 mg/dL (70-110); POTASSIUM 3.4 mmol/L (3.5-5.1); SODIUM SERUM 135 mmol/L (136-145); UREA NITROGEN, BLOOD 24 mg/dL (7-18)
[2019-05-21 05:32] LABS: PLATELET COUNT (AUTO) 826 K/uL (150-450)
[2019-05-21] MEDS: HEPARIN SODIUM 25000 UNITS/D5W 250 ML IV PRN (07:30)
[2019-05-21 08:00] VITALS: BP 104/66
[2019-05-21] MEDS: POTASSIUM CHLORIDE 10% 40 MEQ/30 ML LIQUID UDCUP NG SCH (09:20)
[2019-05-21] MEDS: MULTIVITAMINS WITH MINERALS, THERAPEUTIC 15 ML UDCUP PO SCH (09:20)
[2019-05-21] MEDS: FUROSEMIDE 20 MG/2 ML VIAL IVP SCH ×2 (09:21→20:37)
[2019-05-21] MEDS: PANTOPRAZOLE SODIUM 40 MG DR TABLET PO SCH (09:21)
[2019-05-21] MEDS: GuaiFENesin SR 600 MG ER TABLET PO SCH ×2 (09:21→20:37)
[2019-05-21] MEDS: ASPIRIN 81 MG CHEWABLE TABLET PO SCH (09:22)
[2019-05-21] MEDS: LACTOBACILLUS ACIDOPHILUS/BULGARICUS TABLET PO SCH ×2 (09:23→20:37)
[2019-05-21 12:00] VITALS: BP 104/54
[2019-05-21] MEDS ORDERED: SODIUM CHLORIDE 0.9% 100 ML ONE (15:56)
[2019-05-21] MEDS ORDERED: IOVERSOL 320 MG/ML 100 ML VIAL ONE (15:56)
[2019-05-21 16:00] VITALS: BP 121/69
[2019-05-21] MEDS: HALOPERIDOL LACTATE 5 MG/ML VIAL IVP PRN (16:41)
[2019-05-21 20:00] VITALS: BP 133/78
[2019-05-21] MEDS: NICOTINE 21 MG/24 HOUR PATCH TD SCH (20:37)
[2019-05-21] MEDS: APIXABAN 5 MG TABLET PO SCH (20:37)
[2019-05-22] VITALS (11 sets, daily range): BP systolic 103–124; BP diastolic 58–79
[2019-05-22] MEDS: TraMADol HCL 50 MG TABLET PO PRN (01:59)
[2019-05-22] MEDS: NAFCILLIN SODIUM 2 GM in DEXTROSE 5%-WATER 100 ML IV SCH ×6 (03:54→22:18)
[2019-05-22 05:24] LABS: BASOPHILS % (AUTO) 0.7 % (0.0-2.0); EOSINOPHILS % (AUTO) 2.6 % (1.0-6.0); HEMATOCRIT 27.4 % (36-46); HEMOGLOBIN 8.6 g/dL (12.0-16.0); LYMPHOCYTES # (AUTO) 1.1 K/uL (1.0-4.8); LYMPHOCYTES % (AUTO) 12.4 % (22.0-44.0); MEAN CORPUSCULAR HEMOGLOBIN 22.9 pg (26.0-34.0); MEAN CORPUSCULAR HGB CONC 31.3 G/dL (31.0-37.0); MEAN CORPUSCULAR VOLUME 73 fL (80-100); MONOCYTES # (AUTO) 0.9 K/uL (0.1-1.0); MONOCYTES % (AUTO) 9.8 % (2.0-9.0); NEUTROPHILS # (AUTO) 6.7 K/uL (1.8-7.7); NEUTROPHILS % (AUTO) 74.5 % (40.0-70.0); RED BLOOD CELL COUNT(AUTO) 3.75 MIL/uL (4.00-5.20); RED CELL DISTRIBUTION WIDTH 19.4 % (11.5-14.5)
[2019-05-22 05:42] LABS: ANION GAP 10 mmol/L (8-16); CALCIUM, TOTAL 9.6 mg/dL (8.8-10.5); CARBON DIOXIDE 28 mmol/L (22-29); CHLORIDE 94 mmol/L (98-107); CREATININE 0.74 mg/dL (0.60-1.30); GLOMERULAR FILTR. RATE CALC > 60 mL/min (>60); GLUCOSE,RANDOM 128 mg/dL (70-110); POTASSIUM 3.2 mmol/L (3.5-5.1); SODIUM SERUM 132 mmol/L (136-145); UREA NITROGEN, BLOOD 20 mg/dL (7-18)
[2019-05-22 06:43] LABS: PLATELET COUNT (AUTO) 872 K/uL (150-450)
[2019-05-22] MEDS: FUROSEMIDE 20 MG/2 ML VIAL IVP SCH ×2 (08:25→22:18)
[2019-05-22] MEDS: APIXABAN 5 MG TABLET PO SCH ×2 (08:26→22:18)
[2019-05-22] MEDS: LACTOBACILLUS ACIDOPHILUS/BULGARICUS TABLET PO SCH ×2 (08:26→22:18)
[2019-05-22] MEDS: NICOTINE 21 MG/24 HOUR PATCH TD SCH (08:27)
[2019-05-22] MEDS: GuaiFENesin SR 600 MG ER TABLET PO SCH ×2 (08:27→22:18)
[2019-05-22] MEDS: ASPIRIN 81 MG CHEWABLE TABLET PO SCH (08:27)
[2019-05-22] MEDS: PANTOPRAZOLE SODIUM 40 MG DR TABLET PO SCH (08:27)
[2019-05-22] MEDS: MULTIVITAMINS WITH MINERALS, THERAPEUTIC 15 ML UDCUP PO SCH (08:49)
[2019-05-22] MEDS: MORPHINE SULFATE 2 MG/ML SYRINGE IVP PRN ×3 (08:50→22:24)
[2019-05-22] MEDS: POTASSIUM CHLORIDE 10% 40 MEQ/30 ML LIQUID UDCUP NG SCH (08:50)
[2019-05-22] MEDS ORDERED: SODIUM CHLORIDE 0.9% 250 ML IV ONE (11:28)
[2019-05-22] MEDS: LORazepam 2 MG/ML VIAL IVP PRN ×3 (11:39→22:33)
[2019-05-22 13:02] LABS: C-REACTIVE PROTEIN QUANT 11.35 mg/dL (0.00-0.30)
[2019-05-22] MEDS ORDERED: NICOTINE 21 MG/24 HOUR PATCH TD SCH (17:00)
[2019-05-23] VITALS (8 sets, daily range): BP systolic 105–144; BP diastolic 52–79
[2019-05-23] MEDS: NAFCILLIN SODIUM 2 GM in DEXTROSE 5%-WATER 100 ML IV SCH ×7 (01:04→23:51)
[2019-05-23] MEDS: MORPHINE SULFATE 2 MG/ML SYRINGE IVP PRN ×5 (04:21→22:03)
[2019-05-23] MEDS: NICOTINE 21 MG/24 HOUR PATCH TD SCH (08:15)
[2019-05-23] MEDS: GuaiFENesin SR 600 MG ER TABLET PO SCH ×2 (08:16→20:25)
[2019-05-23] MEDS: APIXABAN 5 MG TABLET PO SCH ×2 (08:16→22:21)
[2019-05-23] MEDS: ASPIRIN 81 MG CHEWABLE TABLET PO SCH (08:16)
[2019-05-23] MEDS: PANTOPRAZOLE SODIUM 40 MG DR TABLET PO SCH (08:16)
[2019-05-23] MEDS: LACTOBACILLUS ACIDOPHILUS/BULGARICUS TABLET PO SCH ×2 (08:16→20:25)
[2019-05-23] MEDS: MULTIVITAMINS WITH MINERALS, THERAPEUTIC 15 ML UDCUP PO SCH (08:17)
[2019-05-23] MEDS: FUROSEMIDE 20 MG/2 ML VIAL IVP SCH ×2 (08:17→20:45)
[2019-05-23] MEDS: POTASSIUM CHLORIDE 10% 40 MEQ/30 ML LIQUID UDCUP NG SCH (09:00)
[2019-05-23] MEDS: LORazepam 2 MG/ML VIAL IVP PRN ×4 (10:30→23:52)
[2019-05-23] MEDS: TraMADol HCL 50 MG TABLET PO PRN ×2 (14:16→20:25)
[2019-05-23] MEDS ORDERED: ALBUTEROL SULFATE 2.5 MG/0.5 ML NEB SOLUTION NEB PRN (21:30)
[2019-05-24 04:22] VITALS: BP 108/63
[2019-05-24] MEDS: NAFCILLIN SODIUM 2 GM in DEXTROSE 5%-WATER 100 ML IV SCH ×7 (04:25→22:55)
[2019-05-24] MEDS: MORPHINE SULFATE 2 MG/ML SYRINGE IVP PRN ×5 (04:25→22:55)
[2019-05-24] MEDS: LORazepam 2 MG/ML VIAL IVP PRN ×4 (05:31→20:26)
[2019-05-24 06:42] LABS: BASOPHILS % (AUTO) 1.5 % (0.0-2.0); EOSINOPHILS % (AUTO) 5.1 % (1.0-6.0); HEMATOCRIT 30.3 % (36-46); HEMOGLOBIN 9.6 g/dL (12.0-16.0); LYMPHOCYTES # (AUTO) 1.3 K/uL (1.0-4.8); LYMPHOCYTES % (AUTO) 17.4 % (22.0-44.0); MEAN CORPUSCULAR HGB CONC 31.6 G/dL (31.0-37.0); MEAN CORPUSCULAR VOLUME 73 fL (80-100); MONOCYTES # (AUTO) 0.9 K/uL (0.1-1.0); MONOCYTES % (AUTO) 11.7 % (2.0-9.0); NEUTROPHILS # (AUTO) 4.9 K/uL (1.8-7.7); NEUTROPHILS % (AUTO) 64.3 % (40.0-70.0); RED BLOOD CELL COUNT(AUTO) 4.16 MIL/uL (4.00-5.20); RED CELL DISTRIBUTION WIDTH 20.2 % (11.5-14.5)
[2019-05-24 06:58] LABS: ALANINE AMINOTRANSFERASE 29 U/L (12-78); ALBUMIN 2.7 g/dL (3.4-5.0); ALKALINE PHOSPHATASE 117 U/L (46-116); ANION GAP 11 mmol/L (8-16); ASPARTATE AMINOTRANSFERASE 19 U/L (15-37); CALCIUM, TOTAL 9.6 mg/dL (8.8-10.5); CARBON DIOXIDE 27 mmol/L (22-29); CHLORIDE 98 mmol/L (98-107); CREATININE 0.72 mg/dL (0.60-1.30); GLOMERULAR FILTR. RATE CALC > 60 mL/min (>60); GLUCOSE,RANDOM 117 mg/dL (70-110); POTASSIUM 4.2 mmol/L (3.5-5.1); SODIUM SERUM 136 mmol/L (136-145); TOTAL PROTEIN, SERUM 7.6 g/dL (6.4-8.2)
[2019-05-24 07:08] LABS: PLATELET COUNT (AUTO) 994 K/uL (150-450)
[2019-05-24 07:20] LABS: UREA NITROGEN, BLOOD 16 mg/dL (7-18)
[2019-05-24] MEDS: POTASSIUM CHLORIDE 10% 40 MEQ/30 ML LIQUID UDCUP NG SCH (08:07)
[2019-05-24 08:14] VITALS: BP 101/61
[2019-05-24] MEDS: NICOTINE 21 MG/24 HOUR PATCH TD SCH (08:29)
[2019-05-24] MEDS: PANTOPRAZOLE SODIUM 40 MG DR TABLET PO SCH (08:29)
[2019-05-24] MEDS: MULTIVITAMINS WITH MINERALS, THERAPEUTIC 15 ML UDCUP PO SCH (08:29)
[2019-05-24] MEDS: GuaiFENesin SR 600 MG ER TABLET PO SCH ×2 (08:30→20:26)
[2019-05-24] MEDS: APIXABAN 5 MG TABLET PO SCH ×2 (08:30→20:26)
[2019-05-24] MEDS: LACTOBACILLUS ACIDOPHILUS/BULGARICUS TABLET PO SCH (08:30)
[2019-05-24] MEDS: ASPIRIN 81 MG CHEWABLE TABLET PO SCH (08:30)
[2019-05-24] MEDS: FUROSEMIDE 20 MG/2 ML VIAL IVP SCH (08:30)
[2019-05-24] MEDS: TraMADol HCL 50 MG TABLET PO PRN (10:24)
[2019-05-24 12:30] VITALS: BP 134/79
[2019-05-24 16:01] VITALS: BP 101/58
[2019-05-24 19:19] VITALS: BP 108/65
[2019-05-24] MEDS: LACTOBAC ACID/BULG/BIFID/THERM TABLET PO SCH (20:27)
[2019-05-24] MEDS: ZOLPIDEM TARTRATE 10 MG TABLET PO PRN (21:31)
[2019-05-24 23:05] VITALS: BP 106/68
[2019-05-25] MEDS: LORazepam 2 MG/ML VIAL IVP PRN ×5 (01:59→21:49)
[2019-05-25] MEDS: NAFCILLIN SODIUM 2 GM in DEXTROSE 5%-WATER 100 ML IV SCH ×3 (04:03→13:01)
[2019-05-25 04:17] VITALS: BP 119/70
[2019-05-25] MEDS: MORPHINE SULFATE 2 MG/ML SYRINGE IVP PRN ×3 (05:15→17:43)
[2019-05-25 06:00] LABS: ANION GAP 16 mmol/L (8-16); CARBON DIOXIDE 26 mmol/L (22-29); CHLORIDE 97 mmol/L (98-107); GLUCOSE,RANDOM 113 mg/dL (70-110); POTASSIUM 3.3 mmol/L (3.5-5.1); SODIUM SERUM 139 mmol/L (136-145); UREA NITROGEN, BLOOD 17 mg/dL (7-18)
[2019-05-25 06:01] LABS: ALANINE AMINOTRANSFERASE 23 U/L (12-78); ALBUMIN 2.5 g/dL (3.4-5.0); ALKALINE PHOSPHATASE 111 U/L (46-116); ASPARTATE AMINOTRANSFERASE 17 U/L (15-37); BILIRUBIN,TOTAL 0.8 mg/dL (0.1-1.0); CALCIUM, TOTAL 9.6 mg/dL (8.8-10.5); GLOMERULAR FILTR. RATE CALC > 60 mL/min (>60); TOTAL PROTEIN, SERUM 8.1 g/dL (6.4-8.2)
[2019-05-25 06:16] LABS: BASOPHILS % (AUTO) 1.3 % (0.0-2.0); EOSINOPHILS % (AUTO) 4.6 % (1.0-6.0); HEMATOCRIT 29.4 % (36-46); HEMOGLOBIN 9.6 g/dL (12.0-16.0); LYMPHOCYTES # (AUTO) 1.6 K/uL (1.0-4.8); LYMPHOCYTES % (AUTO) 21.3 % (22.0-44.0); MEAN CORPUSCULAR HGB CONC 32.6 G/dL (31.0-37.0); MEAN CORPUSCULAR VOLUME 74 fL (80-100); MONOCYTES # (AUTO) 0.7 K/uL (0.1-1.0); MONOCYTES % (AUTO) 9.5 % (2.0-9.0); NEUTROPHILS # (AUTO) 4.9 K/uL (1.8-7.7); NEUTROPHILS % (AUTO) 63.3 % (40.0-70.0); RED BLOOD CELL COUNT(AUTO) 3.99 MIL/uL (4.00-5.20); RED CELL DISTRIBUTION WIDTH 20.5 % (11.5-14.5)
[2019-05-25 07:15] LABS: PLATELET COUNT (AUTO) 1027 K/uL (150-450)
[2019-05-25 07:40] VITALS: BP 112/73
[2019-05-25] MEDS: TraMADol HCL 50 MG TABLET PO PRN ×3 (08:00→21:47)
[2019-05-25] MEDS ORDERED: LOPERAMIDE HCL 2 MG CAPSULE PO PRN (08:45)
[2019-05-25] MEDS: NICOTINE 21 MG/24 HOUR PATCH TD SCH (09:00)
[2019-05-25] MEDS: FUROSEMIDE 20 MG TABLET PO SCH (09:49)
[2019-05-25] MEDS: ASPIRIN 81 MG CHEWABLE TABLET PO SCH (09:49)
[2019-05-25] MEDS: GuaiFENesin SR 600 MG ER TABLET PO SCH ×2 (09:49→19:53)
[2019-05-25] MEDS: APIXABAN 5 MG TABLET PO SCH ×2 (09:49→19:53)
[2019-05-25] MEDS: PANTOPRAZOLE SODIUM 40 MG DR TABLET PO SCH (09:49)
[2019-05-25] MEDS: POTASSIUM CHLORIDE 20 MEQ ER TABLET PO SCH (09:49)
[2019-05-25] MEDS: LACTOBAC ACID/BULG/BIFID/THERM TABLET PO SCH ×4 (09:49→19:53)
[2019-05-25] MEDS: MULTIVITAMINS WITH MINERALS, THERAPEUTIC 15 ML UDCUP PO SCH (09:51)
[2019-05-25 11:49] VITALS: BP 102/65
[2019-05-25] MEDS ORDERED: SODIUM CHLORIDE 0.9% 250 ML IV ONE (16:39)
[2019-05-25 16:45] VITALS: BP 108/64
[2019-05-25] MEDS: CeFAZolin 2 GM/DEXTROSE 50 ML IV SCH (17:07)
[2019-05-25] MEDS: ZOLPIDEM TARTRATE 10 MG TABLET PO PRN (19:53)
[2019-05-25 20:10] VITALS: BP 105/61
[2019-05-26] VITALS (7 sets, daily range): BP systolic 100–118; BP diastolic 64–77
[2019-05-26] MEDS: MORPHINE SULFATE 2 MG/ML SYRINGE IVP PRN ×6 (00:08→23:18)
[2019-05-26] MEDS: CeFAZolin 2 GM/DEXTROSE 50 ML IV SCH ×3 (00:08→17:32)
[2019-05-26] MEDS: LORazepam 2 MG/ML VIAL IVP PRN ×4 (02:22→20:31)
[2019-05-26] MEDS: FUROSEMIDE 20 MG TABLET PO SCH (08:46)
[2019-05-26] MEDS: POTASSIUM CHLORIDE 20 MEQ ER TABLET PO SCH (08:46)
[2019-05-26] MEDS: LACTOBAC ACID/BULG/BIFID/THERM TABLET PO SCH ×4 (08:46→20:31)
[2019-05-26] MEDS: GuaiFENesin SR 600 MG ER TABLET PO SCH ×2 (08:47→20:31)
[2019-05-26] MEDS: PANTOPRAZOLE SODIUM 40 MG DR TABLET PO SCH (08:47)
[2019-05-26] MEDS: NICOTINE 21 MG/24 HOUR PATCH TD SCH ×2 (08:47→08:53)
[2019-05-26] MEDS: ASPIRIN 81 MG CHEWABLE TABLET PO SCH (08:48)
[2019-05-26] MEDS: APIXABAN 5 MG TABLET PO SCH ×2 (08:48→20:31)
[2019-05-26] MEDS: MULTIVITAMINS WITH MINERALS, THERAPEUTIC 15 ML UDCUP PO SCH ×2 (08:51→09:00)
[2019-05-26 12:14] LABS: INR 1.1 (0.9-1.1); PROTHROMBIN TIME 11.2 SEC (9.4-11.6)
[2019-05-26 12:49] LABS: ANION GAP 10 mmol/L (8-16); CALCIUM, TOTAL 9.4 mg/dL (8.8-10.5); CARBON DIOXIDE 27 mmol/L (22-29); CHLORIDE 101 mmol/L (98-107); CREATININE 0.75 mg/dL (0.60-1.30); GLOMERULAR FILTR. RATE CALC > 60 mL/min (>60); GLUCOSE,RANDOM 128 mg/dL (70-110); SODIUM SERUM 138 mmol/L (136-145); UREA NITROGEN, BLOOD 13 mg/dL (7-18)
[2019-05-26] MEDS: TraMADol HCL 50 MG TABLET PO PRN (17:37)
[2019-05-26] MEDS ORDERED: SODIUM CHLORIDE 0.9% 250 ML IV ONE (19:49)
[2019-05-26] MEDS: ZOLPIDEM TARTRATE 10 MG TABLET PO PRN (21:48)
[2019-05-26] MEDS: ACETAMINOPHEN 325 MG TABLET PO PRN (21:51)
[2019-05-27] MEDS: CeFAZolin 2 GM/DEXTROSE 50 ML IV SCH ×2 (00:18→08:52)
[2019-05-27] MEDS: MORPHINE SULFATE 2 MG/ML SYRINGE IVP PRN ×5 (04:17→23:03)
[2019-05-27 04:33] VITALS: BP 110/73
[2019-05-27] MEDS: LORazepam 2 MG/ML VIAL IVP PRN ×5 (05:08→23:03)
[2019-05-27] MEDS: TraMADol HCL 50 MG TABLET PO PRN ×3 (05:09→21:43)
[2019-05-27 05:49] LABS: BASOPHILS % (AUTO) 1.1 % (0.0-2.0); EOSINOPHILS % (AUTO) 5.6 % (1.0-6.0); HEMATOCRIT 30.3 % (36-46); HEMOGLOBIN 9.5 g/dL (12.0-16.0); LYMPHOCYTES # (AUTO) 1.7 K/uL (1.0-4.8); LYMPHOCYTES % (AUTO) 20.7 % (22.0-44.0); MEAN CORPUSCULAR HEMOGLOBIN 23.3 pg (26.0-34.0); MEAN CORPUSCULAR HGB CONC 31.5 G/dL (31.0-37.0); MEAN CORPUSCULAR VOLUME 74 fL (80-100); MONOCYTES # (AUTO) 0.9 K/uL (0.1-1.0); MONOCYTES % (AUTO) 10.1 % (2.0-9.0); NEUTROPHILS # (AUTO) 5.3 K/uL (1.8-7.7); NEUTROPHILS % (AUTO) 62.5 % (40.0-70.0); RED CELL DISTRIBUTION WIDTH 21.8 % (11.5-14.5)
[2019-05-27 06:23] LABS: PLATELET COUNT (AUTO) 984 K/uL (150-450)
[2019-05-27 07:46] VITALS: BP 103/63
[2019-05-27] MEDS: APIXABAN 5 MG TABLET PO SCH (07:46)
[2019-05-27] MEDS: NICOTINE 21 MG/24 HOUR PATCH TD SCH (08:04)
[2019-05-27] MEDS: MULTIVITAMINS WITH MINERALS, THERAPEUTIC 15 ML UDCUP PO SCH (08:04)
[2019-05-27] MEDS: FUROSEMIDE 20 MG TABLET PO SCH (08:04)
[2019-05-27] MEDS: LACTOBAC ACID/BULG/BIFID/THERM TABLET PO SCH ×4 (08:04→21:01)
[2019-05-27] MEDS: ASPIRIN 81 MG CHEWABLE TABLET PO SCH (08:04)
[2019-05-27] MEDS: GuaiFENesin SR 600 MG ER TABLET PO SCH ×2 (08:05→20:44)
[2019-05-27] MEDS: POTASSIUM CHLORIDE 20 MEQ ER TABLET PO SCH (08:05)
[2019-05-27] MEDS: PANTOPRAZOLE SODIUM 40 MG DR TABLET PO SCH (08:05)
[2019-05-27] MEDS ORDERED: HEPARIN SODIUM 25000 UNITS/D5W 250 ML IV PRN (11:20)
[2019-05-27] MEDS ORDERED: HEPARIN SODIUM,PORCINE 5,000 UNITS/ML VIAL IVP PRN ×2 (11:30)
[2019-05-27 11:44] VITALS: BP 119/79
[2019-05-27 12:23] LABS: BASOPHILS % (AUTO) 1.2 % (0.0-2.0); EOSINOPHILS % (AUTO) 5.6 % (1.0-6.0); HEMATOCRIT 30.4 % (36-46); HEMOGLOBIN 9.5 g/dL (12.0-16.0); LYMPHOCYTES # (AUTO) 1.7 K/uL (1.0-4.8); LYMPHOCYTES % (AUTO) 22.2 % (22.0-44.0); MEAN CORPUSCULAR HEMOGLOBIN 23.2 pg (26.0-34.0); MEAN CORPUSCULAR HGB CONC 31.3 G/dL (31.0-37.0); MEAN CORPUSCULAR VOLUME 74 fL (80-100); MONOCYTES # (AUTO) 0.7 K/uL (0.1-1.0); MONOCYTES % (AUTO) 9.3 % (2.0-9.0); NEUTROPHILS # (AUTO) 4.6 K/uL (1.8-7.7); NEUTROPHILS % (AUTO) 61.7 % (40.0-70.0); RED CELL DISTRIBUTION WIDTH 21.6 % (11.5-14.5)
[2019-05-27 12:31] LABS: PLATELET COUNT (AUTO) 908 K/uL (150-450)
[2019-05-27 12:42] LABS: INR 1.1 (0.9-1.1); PROTHROMBIN TIME 11.2 SEC (9.4-11.6)
[2019-05-27 16:04] VITALS: BP 109/72
[2019-05-27] MEDS: NAFCILLIN SODIUM 2 GM in DEXTROSE 5%-WATER 100 ML IV SCH ×3 (16:36→23:03)
[2019-05-27 18:59] VITALS: BP 112/65
[2019-05-27] MEDS: ZOLPIDEM TARTRATE 10 MG TABLET PO PRN (20:43)
[2019-05-27 22:58] VITALS: BP 109/67
[2019-05-28] MEDS: MORPHINE SULFATE 2 MG/ML SYRINGE IVP PRN ×5 (03:04→20:25)
[2019-05-28] MEDS: LORazepam 2 MG/ML VIAL IVP PRN ×3 (03:04→20:25)
[2019-05-28] MEDS: NAFCILLIN SODIUM 2 GM in DEXTROSE 5%-WATER 100 ML IV SCH ×5 (03:05→20:13)
[2019-05-28 03:11] VITALS: BP 101/63
[2019-05-28 07:50] VITALS: BP 117/75
[2019-05-28] MEDS: LACTOBAC ACID/BULG/BIFID/THERM TABLET PO SCH ×4 (08:03→20:26)
[2019-05-28] MEDS: ASPIRIN 81 MG CHEWABLE TABLET PO SCH (08:04)
[2019-05-28] MEDS: POTASSIUM CHLORIDE 20 MEQ ER TABLET PO SCH (08:04)
[2019-05-28] MEDS: FUROSEMIDE 20 MG TABLET PO SCH (08:04)
[2019-05-28] MEDS: PANTOPRAZOLE SODIUM 40 MG DR TABLET PO SCH (08:04)
[2019-05-28] MEDS: GuaiFENesin SR 600 MG ER TABLET PO SCH ×2 (08:04→20:13)
[2019-05-28] MEDS: TraMADol HCL 50 MG TABLET PO PRN (08:30)
[2019-05-28] MEDS: NICOTINE 21 MG/24 HOUR PATCH TD SCH (08:32)
[2019-05-28] MEDS: MULTIVITAMINS WITH MINERALS, THERAPEUTIC 15 ML UDCUP PO SCH (08:33)
[2019-05-28 09:18] LABS: EOSINOPHILS % (AUTO) 6.6 % (1.0-6.0); HEMOGLOBIN 9.2 g/dL (12.0-16.0); LYMPHOCYTES % (AUTO) 17.7 % (22.0-44.0); MEAN CORPUSCULAR HEMOGLOBIN 23.4 pg (26.0-34.0); MEAN CORPUSCULAR HGB CONC 31.6 G/dL (31.0-37.0); MEAN CORPUSCULAR VOLUME 74 fL (80-100); MONOCYTES # (AUTO) 0.5 K/uL (0.1-1.0); MONOCYTES % (AUTO) 8.3 % (2.0-9.0); NEUTROPHILS # (AUTO) 3.8 K/uL (1.8-7.7); NEUTROPHILS % (AUTO) 65.4 % (40.0-70.0); RED BLOOD CELL COUNT(AUTO) 3.92 MIL/uL (4.00-5.20); RED CELL DISTRIBUTION WIDTH 21.4 % (11.5-14.5)
[2019-05-28 09:29] LABS: PLATELET COUNT (AUTO) 829 K/uL (150-450)
[2019-05-28 12:00] VITALS: BP 111/71
[2019-05-28 16:30] VITALS: BP 107/75
[2019-05-28 19:30] VITALS: BP 101/67
[2019-05-28] MEDS: ZOLPIDEM TARTRATE 10 MG TABLET PO PRN (20:25)
[2019-05-29] MEDS: NAFCILLIN SODIUM 2 GM in DEXTROSE 5%-WATER 100 ML IV SCH ×6 (00:01→20:01)
[2019-05-29] MEDS: TraMADol HCL 50 MG TABLET PO PRN ×3 (01:18→20:58)
[2019-05-29 02:35] VITALS: BP 115/44
[2019-05-29 05:45] VITALS: BP 107/60
[2019-05-29 08:00] VITALS: BP 113/66
[2019-05-29] MEDS: MORPHINE SULFATE 2 MG/ML SYRINGE IVP PRN ×4 (08:09→20:01)
[2019-05-29] MEDS: NICOTINE 21 MG/24 HOUR PATCH TD SCH ×2 (08:09→13:26)
[2019-05-29] MEDS: PANTOPRAZOLE SODIUM 40 MG DR TABLET PO SCH (09:00)
[2019-05-29] MEDS: LORazepam 2 MG/ML VIAL IVP PRN ×2 (09:21→21:28)
[2019-05-29] MEDS ORDERED: MIDAZOLAM HCL 2 MG/2 ML VIAL ONE ×3 (09:51→11:59)
[2019-05-29] MEDS ORDERED: LIDOCAINE/PF 1% 5 ML VIAL ONE (09:51)
[2019-05-29] MEDS ORDERED: FentaNYL CITRATE-PF 100 MCG/2 ML VIAL ONE ×3 (09:51→11:59)
[2019-05-29] MEDS ORDERED: SODIUM BICARBONATE 50 MEQ/50 ML VIAL ONE (11:04)
[2019-05-29] MEDS ORDERED: LIDOCAINE/PF 1% 30 ML VIAL ONE (11:05)
[2019-05-29 12:39] VITALS: BP 106/75
[2019-05-29] MEDS: LACTOBAC ACID/BULG/BIFID/THERM TABLET PO SCH ×4 (13:00→20:01)
[2019-05-29] MEDS: MULTIVITAMINS WITH MINERALS, THERAPEUTIC 15 ML UDCUP PO SCH (13:25)
[2019-05-29] MEDS: ASPIRIN 81 MG CHEWABLE TABLET PO SCH (13:25)
[2019-05-29] MEDS: FUROSEMIDE 20 MG TABLET PO SCH (13:25)
[2019-05-29] MEDS: GuaiFENesin SR 600 MG ER TABLET PO SCH ×2 (13:25→20:01)
[2019-05-29] MEDS: POTASSIUM CHLORIDE 20 MEQ ER TABLET PO SCH (13:25)
[2019-05-29 15:15] VITALS: BP 105/68
[2019-05-29 19:52] VITALS: BP 112/68
[2019-05-29] MEDS: HALOPERIDOL LACTATE 5 MG/ML VIAL IVP PRN (21:28)
[2019-05-29] MEDS: ZOLPIDEM TARTRATE 10 MG TABLET PO PRN (21:29)
[2019-05-30] VITALS (7 sets, daily range): BP systolic 93–121; BP diastolic 50–76
[2019-05-30] MEDS: NAFCILLIN SODIUM 2 GM in DEXTROSE 5%-WATER 100 ML IV SCH ×6 (00:45→20:14)
[2019-05-30] MEDS: MORPHINE SULFATE 2 MG/ML SYRINGE IVP PRN ×7 (04:42→23:17)
[2019-05-30] MEDS: TraMADol HCL 50 MG TABLET PO PRN ×2 (05:37→16:06)
[2019-05-30] MEDS: POTASSIUM CHLORIDE 20 MEQ ER TABLET PO SCH (08:07)
[2019-05-30] MEDS: FUROSEMIDE 20 MG TABLET PO SCH (08:07)
[2019-05-30] MEDS: PANTOPRAZOLE SODIUM 40 MG DR TABLET PO SCH (08:07)
[2019-05-30] MEDS: ASPIRIN 81 MG CHEWABLE TABLET PO SCH (08:07)
[2019-05-30] MEDS: MULTIVITAMINS WITH MINERALS, THERAPEUTIC 15 ML UDCUP PO SCH (08:07)
[2019-05-30] MEDS: LACTOBAC ACID/BULG/BIFID/THERM TABLET PO SCH ×4 (08:07→20:13)
[2019-05-30] MEDS ORDERED: MORPHINE SULFATE 2 MG/ML SYRINGE IVP ONE (08:15)
[2019-05-30] MEDS: GuaiFENesin SR 600 MG ER TABLET PO SCH ×2 (09:00→20:13)
[2019-05-30] MEDS: LORazepam 2 MG/ML VIAL IVP PRN (10:25)
[2019-05-31] MEDS: HALOPERIDOL LACTATE 5 MG/ML VIAL IVP PRN (00:14)
[2019-05-31] MEDS: NAFCILLIN SODIUM 2 GM in DEXTROSE 5%-WATER 100 ML IV SCH ×7 (00:14→23:17)
[2019-05-31] MEDS: LORazepam 2 MG/ML VIAL IVP PRN ×3 (00:14→23:17)
[2019-05-31] MEDS: ZOLPIDEM TARTRATE 10 MG TABLET PO PRN ×2 (00:15→22:33)
[2019-05-31 03:15] VITALS: BP 116/72
[2019-05-31] MEDS: MORPHINE SULFATE 2 MG/ML SYRINGE IVP PRN ×7 (04:07→22:33)
[2019-05-31 08:15] LABS: BASOPHILS % (AUTO) 1.4 % (0.0-2.0); EOSINOPHILS % (AUTO) 5.7 % (1.0-6.0); HEMOGLOBIN 8.5 g/dL (12.0-16.0); LYMPHOCYTES # (AUTO) 1.3 K/uL (1.0-4.8); LYMPHOCYTES % (AUTO) 21.8 % (22.0-44.0); MEAN CORPUSCULAR HEMOGLOBIN 23.3 pg (26.0-34.0); MEAN CORPUSCULAR HGB CONC 31.5 G/dL (31.0-37.0); MEAN CORPUSCULAR VOLUME 74 fL (80-100); MONOCYTES # (AUTO) 0.5 K/uL (0.1-1.0); MONOCYTES % (AUTO) 8.2 % (2.0-9.0); NEUTROPHILS # (AUTO) 3.6 K/uL (1.8-7.7); NEUTROPHILS % (AUTO) 62.9 % (40.0-70.0); PLATELET COUNT (AUTO) 663 K/uL (150-450); RED BLOOD CELL COUNT(AUTO) 3.65 MIL/uL (4.00-5.20); RED CELL DISTRIBUTION WIDTH 21.6 % (11.5-14.5)
[2019-05-31 08:29] LABS: ALANINE AMINOTRANSFERASE 10 U/L (12-78); ALBUMIN 2.6 g/dL (3.4-5.0); ALKALINE PHOSPHATASE 100 U/L (46-116); ANION GAP 8 mmol/L (8-16); ASPARTATE AMINOTRANSFERASE 15 U/L (15-37); BILIRUBIN,TOTAL 0.6 mg/dL (0.1-1.0); C-REACTIVE PROTEIN QUANT 1.67 mg/dL (0.00-0.30); CALCIUM, TOTAL 9.4 mg/dL (8.8-10.5); CARBON DIOXIDE 27 mmol/L (22-29); CHLORIDE 101 mmol/L (98-107); CREATININE 0.76 mg/dL (0.60-1.30); GLOMERULAR FILTR. RATE CALC > 60 mL/min (>60); GLUCOSE,RANDOM 130 mg/dL (70-110); POTASSIUM 3.9 mmol/L (3.5-5.1); SODIUM SERUM 136 mmol/L (136-145); TOTAL PROTEIN, SERUM 7.5 g/dL (6.4-8.2); UREA NITROGEN, BLOOD 16 mg/dL (7-18)
[2019-05-31] MEDS: LACTOBAC ACID/BULG/BIFID/THERM TABLET PO SCH ×4 (08:42→19:39)
[2019-05-31] MEDS: MULTIVITAMINS WITH MINERALS, THERAPEUTIC 15 ML UDCUP PO SCH (08:42)
[2019-05-31] MEDS: ASPIRIN 81 MG CHEWABLE TABLET PO SCH (08:42)
[2019-05-31] MEDS: PANTOPRAZOLE SODIUM 40 MG DR TABLET PO SCH (08:42)
[2019-05-31] MEDS: POTASSIUM CHLORIDE 20 MEQ ER TABLET PO SCH (08:42)
[2019-05-31] MEDS: NICOTINE 21 MG/24 HOUR PATCH TD SCH ×2 (08:42→08:49)
[2019-05-31] MEDS: FUROSEMIDE 20 MG TABLET PO SCH (08:42)
[2019-05-31] MEDS: GuaiFENesin SR 600 MG ER TABLET PO SCH ×2 (08:43→19:39)
[2019-05-31 08:55] VITALS: BP 114/75
[2019-05-31] MEDS: TraMADol HCL 50 MG TABLET PO PRN ×2 (08:58→18:39)
[2019-05-31 12:30] VITALS: BP 106/72
[2019-05-31 15:57] LABS: APPEARANCE,URINE CLEAR (CLEAR); BILIRUBIN,URINE NEGATIVE (NEGATIVE); GLUCOSE, URINE (UA) NEGATIVE (NEGATIVE); KETONES,URINE NEGATIVE (NEGATIVE); LEUKOCYTE ESTERASE ,URINE NEGATIVE (NEGATIVE); NITRATE,URINE NEGATIVE (NEGATIVE); OCCULT BLOOD,URINE NEGATIVE (NEGATIVE); PH,URINE 6.5 (5.0-8.0); PROTEIN,URINE NEGATIVE (NEGATIVE); UROBILINOGEN,URINE 0.2 mg/dL (<=1.0)
[2019-05-31 16:30] LABS: WBC,URINE 0-2 /HPF (0-5)
[2019-05-31 16:31] LABS: BACTERIA,URINE None Seen /HPF (None Seen); RBC,URINE 0-2 /HPF (0-2); SQUAMOUS EPITHELIAL CELL,UR Moderate /LPF (None Seen)
[2019-05-31 18:53] VITALS: BP 109/74
[2019-05-31 19:38] VITALS: BP 112/74
[2019-05-31 23:30] VITALS: BP 116/74
[2019-06-01] MEDS: MORPHINE SULFATE 2 MG/ML SYRINGE IVP PRN ×6 (01:51→17:14)
[2019-06-01 04:20] VITALS: BP 114/72
[2019-06-01] MEDS: NAFCILLIN SODIUM 2 GM in DEXTROSE 5%-WATER 100 ML IV SCH ×4 (05:11→17:14)
[2019-06-01 07:47] VITALS: BP 118/64
[2019-06-01] MEDS: MULTIVITAMINS WITH MINERALS, THERAPEUTIC 15 ML UDCUP PO SCH (08:06)
[2019-06-01] MEDS: LACTOBAC ACID/BULG/BIFID/THERM TABLET PO SCH ×3 (08:06→17:14)
[2019-06-01] MEDS: ASPIRIN 81 MG CHEWABLE TABLET PO SCH (08:06)
[2019-06-01] MEDS: GuaiFENesin SR 600 MG ER TABLET PO SCH (08:07)
[2019-06-01] MEDS: POTASSIUM CHLORIDE 20 MEQ ER TABLET PO SCH (08:07)
[2019-06-01] MEDS: FUROSEMIDE 20 MG TABLET PO SCH (08:07)
[2019-06-01] MEDS: PANTOPRAZOLE SODIUM 40 MG DR TABLET PO SCH (08:07)
[2019-06-01] MEDS: NICOTINE 21 MG/24 HOUR PATCH TD SCH (08:08)
[2019-06-01] MEDS ORDERED: GADOBUTROL 1 MMOL/ML 10 ML VIAL IVP ONE (08:38)
[2019-06-01] MEDS ORDERED: SODIUM CHLORIDE 0.9% 1,000 ML IV ONE (09:04)
[2019-06-01 11:30] VITALS: BP 150/78
[2019-06-01 15:27] VITALS: BP 140/76
[2019-06-01] MEDS ORDERED: LACT30L PO (22:24)
[2019-06-01] MEDS ORDERED: KDUR10 PO (22:24)
[2019-06-01] MEDS ORDERED: MS100DRIP IV (22:24)
[2019-06-02] MEDS ORDERED: MORP2CAR IVP (14:20)
[2019-06-02] MEDS ORDERED: NAFC2FRO2 IVPB (18:22)
[2019-06-02] MEDS ORDERED: ACET-2247 PO (18:23)
[2019-06-02] MEDS ORDERED: HYDR-4061 PO (18:23)
[2019-06-02] MEDS ORDERED: OXYC-530 PO (18:24)
== END 2019-06-01 18:45 | DRG 720 ==
LOC: EMS 12:05 → ICU 16:14 → 5S 05-22 16:20 → 6N 05-27 17:50
PROVIDERS: ADMIT Internal Medicine; ATTEND Internal Medicine
PROC: 5A1955Z Respiratory Ventilation, Greater than 96 Consecutive Hours (ICD-10-PCS; principal; 2019-05-12)
PROC: 0BH17EZ Insertion of Endotracheal Airway into Trachea, Via Natural or Artificial Opening (ICD-10-PCS; 2019-05-12)
PROC: 05HM33Z Insertion of Infusion Device into Right Internal Jugular Vein, Percutaneous Approach (ICD-10-PCS; 2019-05-12)
PROC: B543ZZA Ultrasonography of Right Jugular Veins, Guidance (ICD-10-PCS; 2019-05-12)
PROC: B24BZZ4 Ultrasonography of Heart with Aorta, Transesophageal (ICD-10-PCS; 2019-05-14)
PROC: B54NZZA Ultrasonography of Left Upper Extremity Veins, Guidance (ICD-10-PCS; 2019-05-19)
PROC: 05HY33Z Insertion of Infusion Device into Upper Vein, Percutaneous Approach (ICD-10-PCS; 2019-05-19)
PROC: 02HV33Z Insertion of Infusion Device into Superior Vena Cava, Percutaneous Approach (ICD-10-PCS; 2019-05-26)
PROC: B548ZZA Ultrasonography of Superior Vena Cava, Guidance (ICD-10-PCS; 2019-05-26)
PROC: B5181ZA Fluoroscopy of Superior Vena Cava using Low Osmolar Contrast, Guidance (ICD-10-PCS; 2019-05-26)
PROC: 0P903ZX Drainage of Sternum, Percutaneous Approach, Diagnostic (ICD-10-PCS; 2019-05-29)
DX: A41.9 Sepsis, unspecified organism (principal); J96.00 Acute respiratory failure, unspecified whether with hypoxia or hypercapnia; I26.90 Septic pulmonary embolism without acute cor pulmonale; I33.0 Acute and subacute infective endocarditis; I76 Septic arterial embolism; E43 Unspecified severe protein-calorie malnutrition; R65.21 Severe sepsis with septic shock; J18.1 Lobar pneumonia, unspecified organism; G93.40 Encephalopathy, unspecified; I50.20 Unspecified systolic (congestive) heart failure; I82.C11 Acute embolism and thrombosis of right internal jugular vein; R16.2 Hepatomegaly with splenomegaly, not elsewhere classified; B96.89 Other specified bacterial agents as the cause of diseases classified elsewhere; D50.9 Iron deficiency anemia, unspecified; R91.8 Other nonspecific abnormal finding of lung field; B95.61 Methicillin susceptible Staphylococcus aureus infection as the cause of diseases classified elsewhere; D73.5 Infarction of spleen; D47.3 Essential (hemorrhagic) thrombocythemia; F19.10 Other psychoactive substance abuse, uncomplicated; I08.9 Rheumatic multiple valve disease, unspecified; F41.9 Anxiety disorder, unspecified; K59.00 Constipation, unspecified; F32.9 Major depressive disorder, single episode, unspecified; F10.20 Alcohol dependence, uncomplicated; Y90.9 Presence of alcohol in blood, level not specified; M00.9 Pyogenic arthritis, unspecified; F17.210 Nicotine dependence, cigarettes, uncomplicated; M19.012 Primary osteoarthritis, left shoulder; Z88.1 Allergy status to other antibiotic agents; Z99.11 Dependence on respirator [ventilator] status; Z68.21 Body mass index [BMI] 21.0-21.9, adult; Z79.01 Long term (current) use of anticoagulants; Z91.14 Patient's other noncompliance with medication regimen; Z86.711 Personal history of pulmonary embolism; Z91.19 Patient's noncompliance with other medical treatment and regimen; Z95.2 Presence of prosthetic heart valve
CPT/HCPCS: 36245; 36569; 36600; 70450; 70553; 71250; 71275; 72156; 72157; 72158; 74177; 76937; 77012; 80307; 81270; 82728; 82805; 83540; 83550; 83605; 83735; 84132; 84145; 85651; 86140; 86738; 87040; 87070; 87081; 87086; 87205; 88108; 92507; 92526; 92610; 93005; 93306; 93312; 93970; 93971; 94002; 94003; 96374; 96375; 97110; 97116; 97162; 97530; 99291; A9585; G0378; J0131; J0456; J0637; J0690; J0692; J0696; J0712; J1170; J1630; J1644; J1940; J1956; J2001; J2060; J2250; J2270; J2405; J2704; J3010; J3370; J3480; J3490; J7030; J7040; J7050; J7060

== ENCOUNTER 2019-06-01 22:17 | Inpatient (IN) | payer OTHER ==
[~2019-06-01] VITALS: Ht 170.2 cm; Wt 68.2 kg
[~2019-06-01 22:17] MED LIST changes: +ACET-2247 PO; +CEFA1IV IV; +IBUP-2070 PO; -VANC1FRO IVPB
[2019-06-01] MEDS ORDERED: MS100DRIP IV (22:24)
[2019-06-01] MEDS ORDERED: LACT30L PO (22:24)
[2019-06-01] MEDS ORDERED: KDUR10 PO (22:24)
[2019-06-02] MEDS ORDERED: OxyCODONE HCL/ACETAMINOPHEN 10-325 MG TABLET PO ONE (00:45)
[2019-06-02] MEDS ORDERED: ONDANSETRON HCL 4 MG/2 ML VIAL IVP PRN ×2 (00:45→11:45)
[2019-06-02] MEDS ORDERED: ONDANSETRON HCL 4 MG/2 ML VIAL IVP ONE (00:45)
[2019-06-02] MEDS ORDERED: ACETAMINOPHEN 325 MG TABLET PO PRN ×2 (00:45→11:45)
[2019-06-02] MEDS ORDERED: NAFCILLIN SODIUM IM SCH (01:00)
[2019-06-02] MEDS: NAFCILLIN SODIUM 2 GM in DEXTROSE 5%-WATER 100 ML IV SCH ×4 (01:21→18:26)
[2019-06-02 02:28] VITALS: BP 118/75
[2019-06-02 03:13] VITALS: BP 121/77
[2019-06-02] MEDS: OxyCODONE HCL/ACETAMINOPHEN 5-325 MG TABLET PO PRN ×4 (05:06→19:06)
[2019-06-02] MEDS ORDERED: SODIUM CHLORIDE 0.9% 250 ML IV ONE (06:28)
[2019-06-02 07:25] VITALS: BP 114/54
[2019-06-02] MEDS ORDERED: MAGNESIUM HYDROXIDE SUSPENSION 30 ML UDCUP PO PRN (11:45)
[2019-06-02] MEDS ORDERED: HYDROCODONE/ACETAMINOPHEN 5-325 MG TABLET PO PRN (11:45)
[2019-06-02] MEDS ORDERED: ZOLPIDEM TARTRATE 5 MG TABLET PO PRN (11:45)
[2019-06-02] MEDS ORDERED: BISACODYL 10 MG RECTAL RECTAL SUPPOSITORY PR PRN (11:45)
[2019-06-02 12:32] VITALS: BP 120/75
[2019-06-02] MEDS ORDERED: MORP2CAR IVP (14:20)
[2019-06-02] MEDS: HEPARIN SODIUM,PORCINE 5,000 UNITS/ML VIAL SQ SCH ×2 (16:00→17:32)
[2019-06-02] MEDS ORDERED: NAFC2FRO2 IVPB (18:22)
[2019-06-02] MEDS ORDERED: HYDR-4061 PO (18:23)
[2019-06-02] MEDS ORDERED: ACET-2247 PO (18:23)
[2019-06-02] MEDS ORDERED: OXYC-530 PO (18:24)
[2019-06-02 19:12] VITALS: BP 142/76
[2019-06-02] MEDS ORDERED: DOCUSATE SODIUM 100 MG CAPSULE PO SCH (21:00)
[2019-06-03] MEDS ORDERED: PANTOPRAZOLE SODIUM 40 MG DR TABLET PO SCH (09:00)
== END 2019-06-02 20:45 | DRG 200 ==
LOC: EMS 22:18 → EEVIPCON 06-02 00:38 → 5S 06-02 00:38
PROVIDERS: ADMIT Internal Medicine; ATTEND Internal Medicine
DX: I05.9 Rheumatic mitral valve disease, unspecified (principal); I26.90 Septic pulmonary embolism without acute cor pulmonale; I76 Septic arterial embolism; F19.10 Other psychoactive substance abuse, uncomplicated; F11.20 Opioid dependence, uncomplicated; F41.9 Anxiety disorder, unspecified; F32.9 Major depressive disorder, single episode, unspecified; I66.9 Occlusion and stenosis of unspecified cerebral artery; F10.20 Alcohol dependence, uncomplicated; Z91.19 Patient's noncompliance with other medical treatment and regimen; Z87.891 Personal history of nicotine dependence; Z88.1 Allergy status to other antibiotic agents; Z79.899 Other long term (current) drug therapy
CPT/HCPCS: 87081; G0378; J1644; J2405; J3490; J7050; J7060